=== PATIENT | female | born 1940 | race Caucasian/White ===

== ENCOUNTER 2017-03-01 12:02 | Inpatient (IN) | payer MEDICARE ==
[~2017-03-01] VITALS: Ht 131.9 cm; Wt 59.4 kg
[~2017-03-01 12:02] MED LIST: BAYER CHEWABLE81 MG PO; CALCITRIOL0.25 MCG; CALCITRIOL0.25 MCG PO; CALCIUM 600 +1 EAC1 PO; CEFUROXIME250 MG PO; CENTRUM GARLIC300 MG; CITRACAL-VIT D1 EACH; ESTER-C 1,0001 EACH; ESTER-C 500 MG1 EACH PO; EYEBRIGHT PO; GLUCOSAMINE CH1 EAC7; HUMALOG100 UNIT/1 IMPLANT; HYZAAR 50-12.51 EACH PO; LASIX 20 MG TAB20 MG; LIPITOR10 MG PO; LISINOPRIL40 MG PO; NEPHRO-VITE TA0.8 MG PO; NITROGLYCERIN0.4 MG PO; OXYCODONE HCL 55 MG PO; OXYCONTIN10 M1 PO; PLAVIX 75 MG TA75 M1 PO; RENAL CAPS SOFTG1 MG PO; SERTRALINE20 MG/1 ML; SIMVASTATIN20 MG; TOPROL XL25 MG PO; ZOLOFT 50 MG TA50 MG PO; ZOLOFT50 MG PO; [UNRECOGNIZED DRUG - OTHER]
[2017-03-01 12:18] VITALS: BP 184/65
[2017-03-01] MEDS ORDERED: ZYKADIA150 MG PO (12:22)
[2017-03-01 12:39] LABS: BE 0 mmol/L (-2 to +3); HCO3 26.1 mmol/L (22.0-26.0); PCO2 48.9 mmHg (35.0-45.0); PO2 84.2 mmHg (75.0-100.0); pH 7.346 (7.340-7.450)
[2017-03-01 12:56] LABS: ABSOLUTE BASOPHILS 0.1 thou/uL (0.0-0.2); ABSOLUTE EOSINOPHILS 0.1 thou/uL (0.0-0.7); ABSOLUTE LYMPHOCYTES 0.7 thou/uL (0.8-5.3); ABSOLUTE MONOCYTES 0.7 thou/uL (0.0-1.2); BASOPHILS 1.2 %; EOSINOPHILS 1.4 %; HEMATOCRIT 35.3 % (37.0-47.0); HEMOGLOBIN 11.1 gm/dL (12.0-15.0); MCH 28.3 pg (26.0-34.0); MCHC 31.3 g/dL (28.0-37.0); MCV 90.3 fL (80.0-100.0); MONOCYTES 16.2 %; MPV 8.5 fl. (7.2-11.1); NUCLEATED RBCS 0 /100WBC; PLATELET COUNT* 193 thou/uL (150-400); POLYS 66.2 %; RBC 3.91 mil/uL (4.20-5.00); RDW-CV 18.2 % (10.5-14.5); WBC 4.6 thou/uL (4.0-11.0)
[2017-03-01 13:01] LABS: CALCIUM 8.7 mg/dL (8.5-10.1); CREATININE 6.2 mg/dL (0.6-1.3); POTASSIUM 5.1 mmol/L (3.5-5.1)
[2017-03-01 13:06] LABS: ALBUMIN 3.2 g/dL (3.4-5.0); TOTAL BILIRUBIN 0.3 mg/dL (<0.1-1.0); TOTAL PROTEIN 7.3 g/dL (6.4-8.2)
--- NOTE | 2017-03-01 15:29 | EKG ---
[place] [address] ELECTROCARDIOGRAM REPORT Name: SARA BRANDT Room: [facility]#: [id number] Admission: 03/01/17 Attend Phys: Discharge: Date of : 44 Report #: [id number] THIS REPORT FOR: //name// [facility] ED Test Date: 2017-03-01 Test Time: 12:21:32 Pat Name: SARA BRANDT Department: Room: Gender: F Yard Jacker: : 1940 Requested By: Deisi Sotomayor Order Number: [id number] Reading MD: Sam Chadwick Measurements Intervals [place] Rate: 75 P: 46 HI: 154 QRS: -29 QRSD: 91 T: 53 QT: 391 QTc: 437 Interpretive Statements Sinus rhythm LVH by voltage Compared to ECG 11/11/2013 10:39:08 Left ventricular hypertrophy now present Atrial premature complex(es) no longer present Electronically Signed On 03-01-2017 15:29:23 MEAT DEPARTMENT MANAGER by Sam Chadwick [email or web address] <ELECTRONICALLY SIGNED> By: Sam Chadwick MD, [facility] 03/01/17 1529 1221 1221 Sam Chadwick MD, [facility] /EPI
[2017-03-01 18:16] VITALS: BP 160/69
[2017-03-01 18:35] VITALS: BP 167/71
--- NOTE | 2017-03-01 18:47 | NUR ---
ER ADMIT TO ROOM 201. ADMISSION HX OBTAINED. 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 DENIES PAIN AT THIS TIME. 02 ON 3L PER NC, STATES HAS HOME 02 WHICH SHE IS ON 3L PER NC. AT BEDSIDE. ORIENTED TO ROOM/CALL LIGHT AND REVIEWED PLAN OF CARE. NOTIFIED BY CHARGE NURSE PATIENT TO TRANSFER TO MED/TELE FLOOR. WILL PASS ON REPORT TO ONCOMING SHIFT FOR CONTINUATION OF ADMISSION AND CARE.
--- NOTE | 2017-03-01 19:15 | NUR ---
REPORT CALLED TO GIVEN TO YOLIS MARTINEZ ON ORTHO/MED FLOOR. PATIENT EDUCATED ON TRANSFER, AT BEDSIDE. PATIENT TO TRANSFER TO ROOM 117.
[2017-03-01] MEDS ORDERED: NOVOLOG100 UNIT/1 SUBQ (20:16)
[2017-03-01] MEDS ORDERED: LANTUS100 UNIT/M SUBQ (20:17)
[2017-03-01] MEDS ORDERED: NORVASC5 M1 PO (20:26)
[2017-03-01 20:41] VITALS: BP 163/69
[2017-03-02 04:16] VITALS: BP 173/77
--- NOTE | 2017-03-02 08:23 | NUR ---
ARRIVED TO UNIT AT APROXIMATELY 1900. ASSESSMENT DONE CHARTED. HAD WRITTEN ORDER FOR TELE. STATUS. NOTIFIED AND WANTED PATIENT LEFT ON MED/SURG. STATUS. CALL LIGHT WITHIN REACH.
--- NOTE | 2017-03-02 08:28 | NUR ---
ALERT AND ORIENTED. UP WITH STAND BY ASSIST. DR PARTIDA CONSULTED. DR PARTIDA AND MEDICAL DR NOTIFIED OF PATIENT'S ABNORMAL LABS, ASSESSMENT, V/S AND SOA. MEDICAL DR MADE AWARE OF PATIENT'S C/O LEFT SHOULDER PAIN THAT DID NOT RADIATE AND HURT A LITTLE MORE WITH MOVEMENTS BUT NO NEW ORDERS NOTED. DR PARTIDA ORDERED BIPAP FOR PATIENT BUT PATIENT WAS UNABLE TO TOLERATE. DR PARTIDA ALSO ORDERED FOR PATIENT TO HAVE DIALYSIS DURING NIGHT. DIALYSIS NURSE HERE AND DIALYSIS COMPLETED THIS AM. NO C/O N/V. PATIENT DID NOT VOID LAST NIGHT. PATIENT ONLY TOOK IN A VERY SMALL AMOUNT OF WATER. DIALYSIS FISTULA HAS AUDIBLE BRUIT AND PALPABLE THRILL. PATIENT STATED SHE FELT MUCH BETTER AFTER DIALYSIS THIS AM. SHE SAID SHE DID NOT FEEL SOA. CALL LIGHT WITHIN REACH.
[2017-03-02 08:40] VITALS: BP 167/61
[2017-03-02 17:00] VITALS: BP 150/63
--- NOTE | 2017-03-02 17:36 | NUR ---
ASSUMED CARE OF PATIENT AFTER REPORT THIS MORNING. PATIENT AWAKE, ALERT, AND ORIENTED APPROPRIATELY. PHYSICAL ASSESSMENT COMPLETED AND CHARTED. NO COMPLAINTS OF PAIN THIS SHIFT. VITAL SIGNS STABLE. OXYGEN SATURATION WITHIN NORMAL LIMITS ON ROOM AIR. PATIENT USES BEDSIDE COMMODE. TRANSFERS AND AMBULATES WITH ASSIST FROM STAFF. DENIES NEEDS AT THIS TIME. CALL LIGHT WITHIN REACH, USES APPROPRIATELY. NURSING WILL CONTINUE TO MONITOR.
[2017-03-02 19:48] VITALS: BP 167/81
[2017-03-03 00:41] VITALS: BP 154/65
[2017-03-03 04:11] LABS: HEMOGLOBIN 10.9 gm/dL (12.0-15.0); MCH 27.9 pg (26.0-34.0); MCHC 31.2 g/dL (28.0-37.0); MCV 89.4 fL (80.0-100.0); MPV 9.2 fl. (7.2-11.1); RBC 3.92 mil/uL (4.20-5.00); RDW-CV 18.7 % (10.5-14.5); WBC 8.4 thou/uL (4.0-11.0)
[2017-03-03 04:19] LABS: ALBUMIN 2.9 g/dL (3.4-5.0); CALCIUM 9.1 mg/dL (8.5-10.1); POTASSIUM 5.2 mmol/L (3.5-5.1); TOTAL BILIRUBIN 0.6 mg/dL (<0.1-1.0)
[2017-03-03 04:22] LABS: CREATININE 5.2 mg/dL (0.6-1.3)
[2017-03-03 04:50] LABS: PHOSPHORUS* 6.4 mg/dL (2.5-4.9); POTASSIUM 5.4 mmol/L (3.5-5.1)
[2017-03-03 04:55] VITALS: BP 168/75
[2017-03-03 05:19] LABS: CREATININE 5.2 mg/dL (0.6-1.3)
--- NOTE | 2017-03-03 05:39 | NUR ---
ALERT AND ORIENTED X4. UP WITH STAND BY ASSIST TO RECLINER. TYLENOL GIVEN FOR LEG PAIN AMD HELPFUL. HAD SOME NAUSEA AND VOMITING BUT REFUSED NAUSEA MEDICATIONS. LUNG SOUNDS CONTINUE TO BE COARSE BUT HAVE IMPROVED SINCE 03/04. PATIENT STATED SHE FEELS A LITTLE BETTER TODAY. DIAYLSIS FISTULA IN LEFT ARM HAS AUDIBLE BRUIT AND PALPABLE THRILL. O2 AT 3;NC TO KEEP O2 SATS IN 90%. CALL LIGHT WITHIN REACH.
[2017-03-03 08:00] VITALS: BP 129/51
[2017-03-03 18:03] VITALS: BP 132/56
--- NOTE | 2017-03-03 20:22 | NUR ---
I ASSUMED CARE OF THE PATIENT AT 0700. SHE IS ALERT AND ORIENTED X4. BED IS IN THE LOW LOCKED POSITION AND ALARM IS ON. PATIENT CAN TRANSFER WITH ASSISTANCE X1. SHE HAS AN ACCESSED PORT ON THE RIGHT. SHE GETS DIALYSIS . BLOOD SUGAR WAS ALL OVER THE PLACE SHE REFUSED A PORTION OF HER SLIDING SCALE THIS MORNING. HOME CHEMO MEDS ARE IN THE PATIENT DRAWER. PATIENT IS PROGRESSING TOWARD GOALS. FAMILY AND HOAHAOISM FRIENDS ARE AT THE BEDSIDE MOST OF THE DAY. HOURLY ROUNDING WAS COMPLETED, PATIENT NEEDS WERE MET AND PAIN WAS DENIED. BREATHING IS LABORED WITH ANY EXERTION OR EATING. WILL CONTINUE TO MONITOR.
[2017-03-03 22:06] VITALS: BP 143/61
[2017-03-04 01:19] VITALS: BP 166/60
--- NOTE | 2017-03-04 05:51 | NUR ---
ALERT AND ORIENTED. UP WITH STAND BY ASSIST IN ROOM BY BED. SLEPT MOST OF NIGHT IN RECLINER. LUNG SOUNDS CONTINUE TO BE COARSE AND WITH CRACKLES IN BASES. VOMITED A COUPLE OF TIMES LAST NIGHT BUT REFUSED NAUSEA MEDICATION. TYLENOL USED FOR LEG PAIN WITH SOME RELIEF. CONTINUES TO RECEIVE IV ANTIBIODICS. REMAINS ON O2 AT 5L/NC TO KEEP O2 SATS IN 90'S. CALL LIGHT WITHIN REACH.
[2017-03-04 08:15] VITALS: BP 153/49
[2017-03-04 13:07] LABS: HEPATITIS B SURFACE AG Negative (Negative)
[2017-03-04 16:00] VITALS: BP 150/48
--- NOTE | 2017-03-04 18:18 | NUR ---
ASSUMED CARE OF PATIENT AFTER MORNING REPORT. ALERT ORIENTED X4. ASSESSMENT COMPLETED AND CHARTED. VSS ON 5 LITERS. PATIENT HAS HAD NO COMPLAINT OF NAUSEA THIS SHIFT. PAIN HAS BEEN MANAGED WITH MEDICATION. PATIENT HAS BEEN WAITING TO GO UP FOR DIALYSIS FOR SEVERAL HOURS AND IS STILL WAITING. ZOSYN WAS SCHEDULED AT 1400 BUT NOT GIVEN PATIENT IS AWAITING DYALISIS. WILL NEED TO BE GIVEN WHEN SHE COMES BACK DOWN. HOURLY ROUNDS HAVE BEEN MAINTAINED. CALL LIGHT IS WITHIN REACH. NURSING WILL CONTINUE TO MONITOR.
[2017-03-04 19:28] LABS: CALCIUM 8.8 mg/dL (8.5-10.1); POTASSIUM 5.4 mmol/L (3.5-5.1)
[2017-03-04 19:29] LABS: CREATININE 7.4 mg/dL (0.6-1.3)
[2017-03-04 23:20] VITALS: BP 172/79
[2017-03-05 03:56] VITALS: BP 160/68
--- NOTE | 2017-03-05 06:46 | NUR ---
PATIENT HAS BEEN RESTLESS THROUGHOUT THE NIGHT AND IS SITTING UP IN SEMI-FOWLERS TO HELP WITH EASE OF BREATHING. PATIENT HAS HAS LOOSE STOOLS X 2 DURING THE NIGHT. VSS ON 5L 02 VIA NASAL CANNULA. DIALYSIS FISTULA TO LEFT ARM-GOOD BRUIT AND THRILL NOTED. RIGHT CHEST PORT-SL. IV ABT GIVEN WITHOUT ANY ADVERSE SIDE EFFECTS NOTED. LUNGS DIMINISHED. PATIENT INSTRUCTED TO USE CALL LIGHT WHEN NEEDING ASSISTANCE. HOURLY ROUNDS MADE. WILL CONTINUE WITH PLAN OF CARE AND NURSING TO MONITOR.
[2017-03-05 07:56] VITALS: BP 168/75
--- NOTE | 2017-03-05 10:14 | CON ---
[address] [address] CONSULTATION Name: SARA BRANDT Room: [address] IN .R.#: [id number] Admission: 03/01/17 Attend Phys: Jolie Kang Discharge: Date of : 44 Report #: [id number] THIS REPORT FOR: //name// CC: Shilpa Stacy DATE OF SERVICE: 03/02/2017 HISTORY OF PRESENT ILLNESS: The patient is a 76-year-old dialysis patient, who presented acutely short of breath and diagnosed with pneumonia yesterday. He ECG demonstrated sinus rhythm. Her prominent lab abnormalities included a BNP level of greater than 10,000 and evidence of cardiomegaly on chest x-ray, but not classical findings for heart failure on imaging otherwise. There was no evidence of pulmonary embolus. She denies chest pain or pressure or shortness of breath. Symptoms began over the last 7-10 days. They were not improved with her usual hemodialysis runs. There is positive orthopnea and PND. She denies chest pain or pressure. She does carry a coronary artery disease history, which is somewhat vague. PAST MEDICAL HISTORY: She was diagnosed with coronary artery disease initially as workup for kidney transplant workup. She underwent a PCI at [facility]; her family thinks in 2003 or 2004 and then had seen a junior project manager last year at [employer]. She cannot recall the last time any testing was performed, records have been requested. She has end-stage renal disease, on hemodialysis; history of diabetic ketoacidosis. SHE HAS SEVERE HEPARIN ALLERGY. She has irritable bowel syndrome. MEDICATIONS: Include the following: Levofloxacin, IV insulin, Zosyn, Plavix 75 mg daily, atorvastatin 40 mg daily, metoprolol XL 25 mg daily, lisinopril 40 mg daily, baby aspirin. SOCIAL HISTORY: She is a nonsmoker, . REVIEW OF SYSTEMS: GASTROINTESTINAL: No nausea or vomiting. GENITOURINARY: No dysuria or hematuria. PULMONARY: Positive shortness of breath, positive cough. No orthopnea, no PND. CARDIOVASCULAR: Positive dyspnea. No chest pain, no palpitations. NEUROLOGIC: No syncope or seizures. No history of stroke or TIAs. HEMATOLOGIC: No anemia or bleeding disorders. RENAL: Positive kidney failure. ENDOCRINE: Positive diabetes mellitus. PHYSICAL EXAMINATION: [place] [id number] CONSULTATION Name: SARA BRANDT Room: [address]#: [id number] Admission: 03/01/17 Attend Phys: Jolie Kang Discharge: Date of : 44 Report #: [id number] VITAL SIGNS: Blood pressure is 167/61, heart rate 72, in sinus rhythm, and O2 sats 5 liters nasal cannula. GENERAL: This is a pleasant elderly female, she is sitting up in bed, respiring comfortably. CARDIOVASCULAR: Regular. I could hear a diastolic murmur, which is 3/6. LUNGS: Diminished breath sounds bilaterally. ABDOMEN: Soft, nontender. EXTREMITIES: No peripheral edema. SKIN: Warm and dry. Electrocardiogram demonstrates a sinus rhythm with LVH. Her BNP is greater than 10,000. Her troponin was normal. IMPRESSION AND PLAN: 1. Pneumonia. She is on IV antibiotics. 2. Congestive heart failure, presumably diastolic etiology. She also does have valvular heart disease based on physical exam finding. I am trying to obtain her record from [facility] from previous testing. I will order another echocardiogram. 3. Coronary artery disease. She is ruled out for an acute myocardial infarction. She would benefit from stress testing if not done recently, we will obtain records. 4. Hypertension, malignant. She has ECG findings for hypertensive heart disease. Would continue with present medical therapy. 5. End-stage renal disease. <ELECTRONICALLY SIGNED> By: Sam Chadwick MD, FACC 03/05/17 1014 1419 [id number] Chadwick MD, FACC /nt
--- NOTE | 2017-03-05 11:08 | NUR ---
CM SPOKE TO THE PATIENT AND TO DISCUSS HOME SITUAION, DISCHARGE PLANNING, AND TO INFORM OF THE ROLE OF CM. PATIENT RESTING WITH EYES CLOSED AND PATIENTS ANSWERING QUESTIONS. PATIENT RESIDES AT HOME WITH AND HE ASSIST THE PATIENT NEEDED AND DRIVES THE PATIENT TO DIALAYSIS. PATIENT RECIEVES DIALAYSIS AT [facility]. PATIENT OWNS A WALKER AND CANE. PATIENT HAS NO HX OF OR SNF. PATIENT PLANS TO RETURN HOME AT D/C. CM WILL REMAIN AVAILABLE TO ASSIST AND FOLLOW NEEDED.
--- NOTE | 2017-03-05 13:21 | 2DMMODE ---
[place] [address] 2 D/M-MODE ECHOCARDIOGRAM Name: SARA BRANDT Room: [address] IN [facility]#: [id number] Admission: 03/01/17 Attend Phys: Osmin Stacy Discharge: Date of : 44 Date of Service: 03/04/17 1455 Report #: [id number] THIS REPORT FOR: //name// APPROVED REPORT Study performed: 03/04/2017 10:43:35 EXAM: Comprehensive 2D, Doppler, and color-flow Echocardiogram Patient Location: In-Patient Room #: [facility] Status: routine BSA: 1.62 HR: 83 bpm BP: 166/60 mmHg Other Information Study Quality: Good Indications Dyspnea 2D Dimensions LVEF(%): 78.61 (>50%) IVSd: 10.23 (7-11mm) LVOT Diam: 19.60 (18-24mm) LVDd: 45.40 mm PWd: 9.71 (7-11mm) Ascending Ao: 29.12 (22-36mm) LVDs: 24.02 (25-40mm) Aortic Root: 26.42 mm Perea's LVEF: 78.61 % Volumes Left Atrial Volume (Systole) LA ESV Index: 31.60 mL/m2 Aortic Valve AoV Peak Mark.: 1.88 m/s AO Peak Gr.: 14.17 mmHg LVOT Max P.01 mmHg AO Mean Gr.: 7.74 mmHg LVOT Mean P.53 mmHg LVOT Max V: 1.58 m/s AO V2 VTI: 38.51 cm LVOT Mean V: 1.09 m/s SANJIV (VTI): 2.82 cm2 LVOT V1 VTI: 35.94 cm Mitral Valve MV Peak Gr.: 14.29 mmHg MV Mean Gr.: 7.82 mmHg E/A Ratio: 1.04 [place] [address] 2 D/M-MODE ECHOCARDIOGRAM Name: SARA BRANDT Room: [address] IN .R.#: [id number] Admission: 03/01/17 Attend Phys: Osmin Stacy Discharge: Date of : 44 Date of Service: 03/04/17 1455 Report #: [id number] MV Decel. Time: 232.06 ms MV E Max Mark.: 1.77 m/s MV PHT: 67.30 ms MVA (PHT): 3.27 cm2 TDI E/Lateral E': 22.13 E/Medial E': 25.29 Medial E' Mark.: 0.07 m/s Lateral E' Mark.: 0.08 m/s Pulmonary Valve PV Peak Mark.: 1.50 m/s PV Peak Gr.: 8.99 mmHg Tricuspid Valve TR Peak Gr.: 46.40 mmHg RVSP: 51.40 mmHg Left Ventricle The left ventricle is normal size. There is normal LV segmental wall motion. There is normal left ventricular wall thickness. Left ventricular systolic function is normal. The left ventricular ejection fraction is within the normal range. LVEF is >70%. The left ventricular diastolic function is normal. Right Ventricle The right ventricle is normal size. The right ventricular systolic function is normal. Atria Left atrium is mildly dilated. The right atrium size is normal. Aortic Valve The aortic valve is normal in structure. No aortic regurgitation is present. There is no aortic valvular stenosis. Mitral Valve There is mitral annular calcification. Mild mitral regurgitation. Mild mitral stenosis. Tricuspid Valve The tricuspid valve is normal in structure. Moderate tricuspid regurgitation. The RVSP is __51.4 mmHg. Pulmonic Valve The pulmonary valve is normal in structure. Trace [place] [address] 2 D/M-MODE ECHOCARDIOGRAM Name: SARA BRANDT Room: [address] IN M.R.#: [id number] Admission: 03/01/17 Attend Phys: Osmin Stacy Discharge: Date of : 44 Date of Service: 03/04/17 1455 Report #: [id number] Great Vessels The aortic root is normal in size. IVC is normal in size and collapses with >50% inspiration Pericardium There is no pericardial effusion. <Conclusion> LVEF is >70%. Left atrium is mildly dilated. Mild mitral regurgitation. Mild mitral stenosis. Moderate tricuspid regurgitation. The RVSP is __51.4 mmHg. <ELECTRONICALLY SIGNED> By: Kale Dyson MD, [facility] 03/04/17 1455 1455 1455 Kale Dyson MD, FAC /INF
--- NOTE | 2017-03-05 14:45 | NUR ---
CM SPOKE TO THE PATIENT TO DISCUSS DISCHARGE PLANNING AND ANY QUESTIONS OR CONCERNS THAT SHE MAY HAVE. PATIENT HAS NO QUESTIONS OR CONCERNS AT THIS TIME. PATIENT TO DISCHARGE HOME TODAY AMD WILL RETURN TO [facility] TOMORROW. CM CONTACTED [facility] AND SPOKE TO PRINCESS TO INFORM THAT THE PATIENT WOULD D/C TODAY AND FAXED THE PATIENTS FLOW SHEETS. CM WILL REMAIN AVAILABLE TO ASSIST AND FOLLOW NEEDED
[2017-03-05] MEDS ORDERED: LEVAQUIN 500 M500 M1 PO (14:51)
[2017-03-05] MEDS ORDERED: ATORVASTATIN CA40 MG PO (14:52)
[2017-03-05 16:00] VITALS: BP 165/74
--- NOTE | 2017-03-05 17:07 | NUR ---
ASSUMED CARE OF PATIENT AFTER REPORT THIS MORNING. PATIENT AWAKE, ALERT, AND ORIENTED APPROPRIATELY. PHYSICAL ASSESSMENT COMPLETED AND CHARTED. NO COMPLAINTS OF PAIN. GIVEN SCHEDULED MEDICATIONS, SEE EMAR FOR DOCUMENTATION. VITAL SIGNS STABLE. OXYGEN SATURATION WITHIN NORMAL LIMITS ON 4 LPM PER NASAL CANULA. PATIENT IS TO TRANSFER WITH ASSISTANCE FROM STAFF. OK FOR TO HELP PATIENT WHILE PRESENT. PATIENT AND EDUCATED TO LET STAFF KNOW WHEN LEAVES. RECEIVED DISCHARGE ORDERS FROM PHYSICIAN. PATIENT MADE AWARE. SHORTLY AFTER PHYSICIAN LEFT PATIENT COMPLAINED OF BODY ACHES, DIARRHEA, AND DRY HEAVING. PATIENT STATED SHE DIDN'T FEEL THIS WAY WHILE THE PHYSICIAN WAS IN THE ROOM, THAT IT CAME ON QUICKLY. PHYSICIAN MADE AWARE. ORDER TO DISCHARGE CANCELLED. NEW ORDERS RECEIVED. PATIENT DENIES NEEDS AT THIS TIME. CALL LIGHT WITHIN REACH. NURSING WILL CONTINUE TO MONITOR.
[2017-03-05 17:10] LABS: INFLUENZA A ANTIGEN None Detected (None Detect); INFLUENZA B ANTIGEN None Detected (None Detect)
[2017-03-05 20:40] VITALS: BP 176/79
[2017-03-06] VITALS (13 sets, daily range): BP systolic 122–188; BP diastolic 7–93
--- NOTE | 2017-03-06 04:10 | NUR ---
PATIENT HAS BEEN RESTLESS THROUGHOUT THE NIGHT AND STATES THAT SHE IS VERY TIRED BUT CAN'T SLEEP. PATIENT IS ANXIOUS. BENADRYL GIVEN TO HELP WITH ANXIETY AND TO HELP WITH SLEEP ORDERED. VSS ON 4L 02 VIA NASAL CANNULA, ALTHOUGH BP IS ELEVATED. LUNG SOUNDS DIM AND ASSESSMENT CHARTED. PATIENT IS UP WITH SBA TO THE [facility] AND HAS HAD MULTIPLE EPISODES OF LIQUID STOOL THROUGHOUT THE SHIFT. PATIENT REMAINS ON SPECIAL CONTACT ISOLATION D/T POSSIBLE C-DIFF. STOOL CULTURE IS PENDING. RIGHT CHEST PORT FLUSHED AND SL. FISTULA TO LEFT ARM- GOOD BRUIT AND THRILL NOTED. PATIENT HAS HAD C/O NAUSEA BUT NO EMESIS NOTED. NAUSEA MEDICATION GIVEN. PATIENT INSTRUCTED TO USE CALL LIGHT WHEN NEEDING ASSISTANCE. HOURLY ROUNDS MADE. WILL CONTINUE WITH PLAN OF CARE AND NURSING TO MONITOR.
[2017-03-06 05:36] LABS: HEMATOCRIT 35.6 % (37.0-47.0); MCHC 30.8 g/dL (28.0-37.0); MCV 90.9 fL (80.0-100.0); MPV 9.6 fl. (7.2-11.1); RBC 3.92 mil/uL (4.20-5.00); RDW-CV 18.6 % (10.5-14.5); WBC 7.5 thou/uL (4.0-11.0)
[2017-03-06 05:40] LABS: CALCIUM 9.3 mg/dL (8.5-10.1); POTASSIUM 5.3 mmol/L (3.5-5.1)
[2017-03-06 05:41] LABS: CREATININE 4.9 mg/dL (0.6-1.3)
--- NOTE | 2017-03-06 15:57 | NUR ---
PT.WENT IN TO AFIB WITH RVR THIS AFTERNOON. ON CARDIZEM GTT AND WILL TRANSFER TO TELEMETRY.
--- NOTE | 2017-03-06 16:09 | NUR ---
ASSUMED CARE OF PATIENT AFTER REPORT THIS MORNING. PATIENT AWAKE, ALERT, AN DORIENTED APPROPRIATELY. PHYSICAL ASSESSMENT COMPLETED AND CHARTED. VITAL SIGNS STABLE PRIOR TO DIALYSIS. PATIENT WENT TO DIALYSIS. WHEN PATIENT RETURNED FROM DIALYSIS VITAL SIGNS CHECKED AND HEART RATE WAS 142 WITH STABLE BLOOD PRESSURE. SCHEDULED MEDICATIONS GIVEN, SEE EMAR FOR DOCUMENTATION. OBTAINED EKG WITH RESULTS BEING AFIB. PHYSICIAN PAGED AND NEW ORDERS RECEIVED TO TRANSFER PATIENT TO TELEMETRY UNIT AND START ON CARDIZEM DRIP. NO TELEMETRY BED AVAILABLE AT TIME OF ORDER. TELEMETRY NURSE IN ROOM WITH CARDIZEM GTT RUNNING AT THIS TIME. PATIENT'S HEART RATE REMAINS 120S-130S. REPORT CALLED AND GIVEN TO RAMIRO ON TELEMETRY UNIT. PATIENT READY TO TRANSFER AT THIS TIME.
--- NOTE | 2017-03-06 16:28 | EKG ---
[place] [address] ELECTROCARDIOGRAM REPORT Name: SARA BRANDT Room: [address] ADM IN .R.#: [id number] Admission: 03/01/17 Attend Phys: Jolie Kang Discharge: Date of : 44 Report #: [id number] THIS REPORT FOR: //name// [facility] Test Date: 2017-03-06 Test Time: 13:42:34 Pat Name: SARA BRANDT Department: Room: [address] Gender: F Animal Control Supervisor: 27 : 1940 Requested By: Kale Dyson Order Number: [id number] Alejandra MD: Kale Dyson Measurements Intervals [place] Rate: 138 P: RI: QRS: -14 QRSD: 82 T: 177 QT: 268 QTc: 406 Interpretive Statements Atrial fibrillation LVH with secondary repolarization abnormality Baseline wander in lead(s) V2 Compared to ECG 03/01/2017 12:21:32 Sinus rhythm no longer present Electronically Signed On 03-06-2017 16:28:01 CENTRIFUGAL CASTING MACHINE OPERATOR by Kale Dyson [email or web address] <ELECTRONICALLY SIGNED> By: Kale Dyson MD, [facility] 03/06/17 1628 1342 1342 Kale Dyson MD, [facility] /EPI
--- NOTE | 2017-03-06 16:53 | NUR ---
ASSUMED PT CARE AROUND 1644 PT IS ALERT AND ORIENTED X 4 PT STATES LEGS ARE ACHY PT WAS GIVEN TYLENOL BY PREVIOUS NURSE PT STATES TYLENOL HELPS, PT IS ON 3L/NC HAS EPISODES WITH SOA, PT IS NOT A FALL RISK [T HAS BEEN EDUCATED TO REFRAIN FROM MOVING AROUND FREQUENTLY SINCE PT HEART RATE IS ELEVATED PT IS ON CARDIZEM DRIP PT HAS NEW ONSET AFIB, PT BLOOD PRESSURE ARE STABLE, PT IS ANXIOUS, PT IS UP TO BEDSIDE COMMODE, WILL CONTINUE TO MONITOR
[2017-03-07] VITALS: BP 146/49
--- NOTE | 2017-03-07 02:19 | NUR ---
PATIENT IS SLEEPING ON AND OFF THROUGHOUT NIGHT. EPISODE OF EMESIS DUE TO PO CHEMO THAT PATIENT TAKES AT HOME WELL. OFFERED ZOFRAN BUT REFUSED. LS DIM. CONT. SR ON MONITOR. NO SIGNS OF DISTRESS. DENIES PAIN OR DISCOMFORT. CONT. WITH PLAN OF CARE AT THIS TIME.
[2017-03-07 08:00] VITALS: BP 162/53
--- NOTE | 2017-03-07 11:18 | NUR ---
ASSUMED CARE OF PT AT 0730. PT RESTING AT EDGE OF BED COMPLAINING OF GENERALIZED PAIN. TREATED WITH PRN TYLENOL WITH PARTIAL RELIEF. PT VOMITED EARLY THIS AM PRIOR TO DAYSHIFT AFTER RECEIVING CHEMO MEDICATIONS. REFUSED ANTI NAUSEA MEDICATIONS. PT UP TO CHAIR FOR BREAKFAST. PT A&0X4. TRACING SR ON THE PRESS PULLER. ON 3L NC SAT 99%. DENIES ANY SHORTNESS OF BREATH. PT UP SBA TO BATHROOM. PT BLOOD GLUCOSE 466 THIS AM. GOAL IS TO MANAGE PAIN, NAUSEA AND BLOOD GLUCOSE LEVELS AND UP TO CHAIR FOR MEALS TO INCREASE ACTIVITY. AM ASSESSMENT CHARTED. MEDICATIONS PER APR. PT REPOSITIONS SELF IN BED WITH REMINDERS. HOURLY ROUNDING OBSERVED. BED IN LOW POSITION. CALL LIGHT WITHIN REACH. WILL CONTINUE PLAN OF CARE.
[2017-03-07 11:58] VITALS: BP 147/50
[2017-03-07 15:44] LABS: CALCIUM 8.9 mg/dL (8.5-10.1); CREATININE 4.6 mg/dL (0.6-1.3); POTASSIUM 3.5 mmol/L (3.5-5.1)
[2017-03-07 16:10] VITALS: BP 122/45
--- NOTE | 2017-03-07 17:31 | EKG ---
[place] [address] ELECTROCARDIOGRAM REPORT Name: SARA BRANDT Room: [address] ADM IN .R.#: [id number] Admission: 03/01/17 Attend Phys: Jolie Kang Discharge: Date of : 44 Report #: [id number] THIS REPORT FOR: //name// [facility] Test Date: 2017-03-07 Test Time: 09:16:07 Pat Name: SARA BRANDT Department: Room: [address] Gender: F Peoplesoft Crm Developer: 27 : 1940 Requested By: Melanie Case Order Number: [id number] Reading MD: Jose C Cardoza Measurements Intervals [place] Rate: 73 P: 59 CT: 136 QRS: -25 QRSD: 86 T: 68 QT: 417 QTc: 460 Interpretive Statements Sinus rhythm Borderline left axis deviation Early transition Compared to ECG 03/06/2017 13:42:34 ST (T wave) deviation now present Myocardial infarct finding now present Atrial fibrillation no longer present Left ventricular hypertrophy no longer present Early repolarization no longer present Electronically Signed On 03-07-2017 17:31:25 STRATEGIC SOLUTIONS CONSULTANT by Jose C Cardoza [email or web address] <ELECTRONICALLY SIGNED> By: Jose C Cardoza MD, FACC 03/07/17 1731 5 5 Jose C Cardoza MD, FACC /EPI
--- NOTE | 2017-03-07 17:38 | NUR ---
NO ACUTE CHANGES THROUGHOUT SHIFT. REFER TO CHARTING. PT COMPLAINED OF NAUSEA-TREATED WITH IV ZOFRAN WITH RELIEF. PT COMPLAINED OF PAIN TO BILATERAL LE'S. SCHEDULED HOME OXYCODONE 10MG PO BID RESTARTED TO PT APR AND GIVEN WITH PAIN RELIEF. INSULIN CHANGED TO MODERATE DOSE SLIDING SCALE PER PROTOCOL. REFER TO EMAR. PT AT BEDSIDE THROUGHOUT SHIFT. PT CONTINUES TO TRACE SR ON THE TAXICAB DRIVER. ON 3L NC SAT UPPER 90'S. DENIES ANY SHORTNESS OF BREATH. PT UP WITH [facility] [place] [facility] HAD A BOWEL MOVEMENT TODAY. MEDICATIONS PER APR. PT REPOSITIONS SELF IN BED WITH REMINDERS. HOURLY ROUNDING OBSERVED. BED IN LOW POSITION. BED ALARM IN PLACE. FALL PRECAUTIONS IN PLACE. CALL LIGHT WITHIN REACH. WILL CONTINUE PLAN OF CARE.
[2017-03-08] VITALS (7 sets, daily range): BP systolic 110–146; BP diastolic 35–48
--- NOTE | 2017-03-08 03:20 | NUR ---
ASSUMED CARE OF PT AT 1900. PT IS ALERT AND ORIENTED. VSS. PERRLA. NO COMPLAINTS OF PAIN. PT TO START DIALYSIS IN THE AM AT 0730. PT IS IN SINUS RYTHM ON THE TELEMETRY. PT IS RESTING COMFORTABLY IN BED. RESPIRATIONS ARE EVEN AND NONLABORED. WILL CONTINUE TO MONITOR PT.
--- NOTE | 2017-03-08 11:05 | NUR ---
ASSUMED CARE OF PT AT 0730. PT RESTING IN BED WAITING FOR DIALYSIS. PT A&0X4, DENIES ANY PAIN OR SHORTNESS OF BREATH AT THIS TIME. PT TRACING SR ON THE AUTOMOTIVE PARTS INTERPRETER. ON 3L NC SAT UPPER 90'S. PT UP SBA TO BATHROOM. PT GOAL FOR TODAY IS TO WORK WITH PT AND OT, INCREASE STRENGTH AND ENDURANCE AND POSSIBLE DISCHARGE HOME AFTER DIALYSIS. AM ASSESSMENT CHARTED. MEDICATIONS PER APR. PT REPOSITIONS SELF IN BED WITH REMINDERS. HOURLY ROUNDING OBSERVED. BED IN LOW POSITION. CALL LIGHT WITHIN REACH. WILL CONTINUE PLAN OF CARE. PT UP TO DIALYSIS AT APPROXIMATELY 0745.
--- NOTE | 2017-03-08 12:39 | EKG ---
[place] [address] ELECTROCARDIOGRAM REPORT Name: SARA BRANDT Room: [address] ADM IN .R.#: [id number] Admission: 03/01/17 Attend Phys: Jolie Kang Discharge: Date of : 44 Report #: [id number] THIS REPORT FOR: //name// [facility] Test Date: 2017-03-08 Test Time: 09:31:22 Pat Name: SARA BRANDT Department: Room: [address] Gender: F Gearman: 27 : 1940 Requested By: Melanie Case Order Number: [id number] Alejandra MD: Kale Dyson Measurements Intervals [place] Rate: 59 P: 33 NV: 141 QRS: -27 QRSD: 86 T: 126 QT: 442 QTc: 438 Interpretive Statements Sinus rhythm left axis Probable left atrial enlargement LVH with secondary repolarization abnormality Compared to ECG 03/07/2017 09:16:07 no change Electronically Signed On 03-08-2017 12:39:16 DRYING EQUIPMENT OPERATOR by Kale Dyson [email or web address] <ELECTRONICALLY SIGNED> By: Kale Dyson MD, [facility]ACCrys 03/08/17 1239 0931 Kale Dyson MD, [facility] /EPI
--- NOTE | 2017-03-08 13:29 | NUR ---
Nutrition: Pt assessed for LOS. Pt not in room at time of attempted visit, 12:15. Pt will likely discharge home today after HD. Wt: 130#. Labs, RX, hx noted. Low risk.
--- NOTE | 2017-03-08 14:43 | NUR ---
Pt in agreement with going to skilled, faxed referral to [place] per Pt's request. Pt's sister works there. DC orders written, awaiting decision to accept. Pt's can transport.
[2017-03-08] MEDS ORDERED: PACERONE 200 M200 M1 PO (15:35)
[2017-03-08] MEDS ORDERED: ELIQUIS2.5 MG PO (15:37)
[2017-03-08] MEDS ORDERED: ZYKADIA150 MG PO (15:41)
[2017-03-08] MEDS ORDERED: CARDIZEM CD120 MG PO (15:42)
--- NOTE | 2017-03-08 15:44 | NUR ---
Pt discharging to [facility] today. Faxed dc orders. Chart copied. Nurse report number provided, . in room and aware of disposition. will transport. Updated May[facility] at [facility], faxed flowsheets.
[2017-03-08] MEDS ORDERED: FLORANEX TABLE1 EACH PO (15:48)
[2017-03-08] MEDS ORDERED: CALCIUM 600 +1 EAC1 PO (15:59)
[2017-03-08] MEDS ORDERED: DUONEB 2.5-0.5 M3 ML INH (16:00)
[2017-03-08] MEDS ORDERED: FLORASTOR250 MG PO (16:02)
--- NOTE | 2017-03-08 16:22 | CON ---
[address] [place] [address] CONSULTATION Name: SARA BRANDT Room: [address] IN .R.#: [id number] Admission: 03/01/17 Attend Phys: Jolie Kang Discharge: Date of : 44 Report #: [id number] THIS REPORT FOR: //name// CC: Shilpa Stacy CONSULTING PHYSICIAN: Osmin Stacy DO REASON FOR CONSULTATION: End-stage kidney disease. HISTORY OF PRESENT ILLNESS: A 76-year-old female with a history of end-stage kidney disease, on hemodialysis Saturday, Saturday and Saturday, admitted with shortness of breath, diagnosed with pneumonia, has been started on treatment for that, was still having some shortness of breath, was dialyzed recently this morning, had about 2.5 kilos of fluid taken off. She is still having some shortness of breath and has breathing treatments ordered. She otherwise has no complaints. REVIEW OF SYSTEMS: Constitutional, psych, heme, eyes, ENT, respiratory, cardiac, GI, , endocrine, all negative except as documented above. PAST MEDICAL HISTORY: 1. End-stage kidney disease, on hemodialysis at the [facility], Saturday, Saturday and Saturday, on dialysis since 2012. 2. Diabetes. 3. Hypertension. 4. History of irritable bowel syndrome. 5. History of lung cancer. 6. Dyslipidemia. 7. Coronary artery disease. MEDICATIONS: Reviewed. FAMILY HISTORY: Mother had kidney disease, dialysis. SOCIAL HISTORY: No tobacco. PHYSICAL EXAMINATION: VITAL SIGNS: Blood pressure 167/61, pulse 92, temperature 36.9. GENERAL: No acute distress. EYES: Extraocular movements intact. EARS: Externally normal. CARDIOVASCULAR: Regular rate. LUNGS: No crackles. ABDOMEN: Soft. MUSCULOSKELETAL: Nontender. PSYCHIATRIC: Awake, [place] [address] CONSULTATION Name: SARA BRANDT Room: [address]#: [id number] Admission: 03/01/17 Attend Phys: Jolie Kang Discharge: Date of : 42 Report #: [id number] LABORATORY DATA: White cell count 4.6, hemoglobin 11.1, platelets 193. Sodium 131, potassium 5.1, chloride 98, bicarbonate 27, BUN 74, creatinine 6.2, glucose 473, calcium 8.7, albumin 3.2. ASSESSMENT AND PLAN: 1. End-stage kidney disease, hemodialysis Saturday, Saturday and Saturday. 2. Hyponatremia. 3. Pneumonia. PLAN: The patient was dialyzed early this morning, 2.6 kilos of fluid were removed. She is currently being treated for pneumonia. Her sodium was little low, fluid was removed and this is also in the setting of hyperglycemia. We will follow her maintenance dialysis needs. Thank you for requesting my opinion in the care and management of this patient. <ELECTRONICALLY SIGNED> By: Leonor Devries MD 03/08/17 1622 1009 [id number] Devries MD /nt
[2017-03-08] MEDS ORDERED: LIPITOR40 MG PO (16:40)
--- NOTE | 2017-03-08 17:40 | NUR ---
PT HAD DIALYSIS TODAY-3L TAKEN OFF. PT WEAK FOLLOWING DIALYSIS. PT AGRREABLE TO GO TO SNF FOR REHAB. DISCHARGE ORDERS TO [facility] RECEIVED. DISCHARGE INSTRUCTIONS, CARE NOTES, SCRIPTS AND FOLLOW UP APPTS COPIED AND PLACED IN FOLDER FOR FACILITY. CARDIOLOGY HERE TO SEE PT AND ADJUSTED HEART MEDS. RIGHT CHEST MELLY CATH DEACCESSED USING 10ML SALINE ONLY PER PT REQUEST. PT ALLERGIC TO HEPARIN AND STATES SHE ONLY USES SALINE TO DEACCESS PORT. LEFT ARM FISTULA IN PLACE WITH BANDAGES FROM DIALYSIS TODAY. BUCKLE AND BUTTON MAKER REMOVED. PT DISCHARGED WITH ALL BELONGINGS AND PAPERWORK VIA WHEELCHAIR WITH NURSING STAFF TO SPOUSE OWN PERSONAL VEHICLE. SPOUSE TO TRANSPORT PT TO [facility] IN [facility]. REPORT CALLED TO LUCIL[facility] AT [facility].
== END 2017-03-08 17:50 | DRG 177 ==
LOC: M.ERS 12:02 → M.ORTHSURG 16:01 → M.TBA-ER 16:01 → M.2W 18:32 → M.ORTHSURG 19:28 → M.2W 03-06 16:20
PROVIDERS: Internal Medicine; Internal Medicine Nephrology; Personal Emergency Response Attendant; ADMIT Internal Medicine
PROC: 5A1D70Z Performance of Urinary Filtration, Intermittent, Less than 6 Hours Per Day (ICD-10-PCS; principal; 2017-03-02)
PROC: 5A1D70Z Performance of Urinary Filtration, Intermittent, Less than 6 Hours Per Day (ICD-10-PCS; 2017-03-04)
PROC: 5A1D70Z Performance of Urinary Filtration, Intermittent, Less than 6 Hours Per Day (ICD-10-PCS; 2017-03-06)
DX: J69.0 Pneumonitis due to inhalation of food and vomit (principal); N18.6 End stage renal disease; I50.33 Acute on chronic diastolic (congestive) heart failure; E87.1 Hypo-osmolality and hyponatremia; I13.2 Hypertensive heart and chronic kidney disease with heart failure and with stage 5 chronic kidney disease, or end stage renal disease; E11.22 Type 2 diabetes mellitus with diabetic chronic kidney disease; E11.40 Type 2 diabetes mellitus with diabetic neuropathy, unspecified; E11.65 Type 2 diabetes mellitus with hyperglycemia; E78.5 Hyperlipidemia, unspecified; I25.10 Atherosclerotic heart disease of native coronary artery without angina pectoris; J15.6 Pneumonia due to other Gram-negative bacteria; E87.5 Hyperkalemia; I48.91 Unspecified atrial fibrillation; R19.7 Diarrhea, unspecified; Z95.5 Presence of coronary angioplasty implant and graft; Z99.2 Dependence on renal dialysis; Z98.49 Cataract extraction status, unspecified eye; Z85.118 Personal history of other malignant neoplasm of bronchus and lung; Z88.8 Allergy status to other drugs, medicaments and biological substances; Z84.1 Family history of disorders of kidney and ureter; Z82.49 Family history of ischemic heart disease and other diseases of the circulatory system; Z79.82 Long term (current) use of aspirin; Z79.899 Other long term (current) drug therapy

== ENCOUNTER 2017-03-11 11:40 | Inpatient (IN) | payer MEDICARE ==
[~2017-03-11] VITALS: Ht 160 cm; Wt 49.0 kg
[~2017-03-11 11:40] MED LIST changes: +ATORVASTATIN CA40 MG PO; +CARDIZEM CD120 MG PO; +DUONEB 2.5-0.5 M3 ML INH; +ELIQUIS2.5 MG PO; +FLORANEX TABLE1 EACH PO; +FLORASTOR250 MG PO; +LANTUS100 UNIT/M SUBQ; +LEVAQUIN 500 M500 M1 PO; +LIPITOR40 MG PO; +NORVASC5 M1 PO; +NOVOLOG100 UNIT/1 SUBQ; +PACERONE 200 M200 M1 PO; +ZYKADIA150 MG PO
[2017-03-11 11:56] VITALS: BP 135/42
[2017-03-11 12:13] LABS: BE -4.8 mmol/L (-2 to +3); HCO3 21.5 mmol/L (22.0-26.0); PCO2 44.8 mmHg (35.0-45.0)
[2017-03-11 12:15] LABS: pH 7.299 (7.340-7.450)
[2017-03-11 12:15] LABS: HEMATOCRIT 29.9 % (37.0-47.0); HEMOGLOBIN 9.3 gm/dL (12.0-15.0); MCH 28.5 pg (26.0-34.0); MCHC 31.1 g/dL (28.0-37.0); MCV 91.5 fL (80.0-100.0); NUCLEATED RBCS 0 /100WBC; PLATELET COUNT* 176 thou/uL (150-400); RBC 3.27 mil/uL (4.20-5.00); RDW-CV 18.3 % (10.5-14.5)
[2017-03-11 12:23] LABS: CALCIUM 8.9 mg/dL (8.5-10.1); CREATININE 7.7 mg/dL (0.6-1.3); POTASSIUM 4.9 mmol/L (3.5-5.1)
[2017-03-11 12:27] LABS: ALBUMIN 2.8 g/dL (3.4-5.0); TOTAL BILIRUBIN 0.3 mg/dL (<0.1-1.0); TOTAL PROTEIN 6.7 g/dL (6.4-8.2)
[2017-03-11 12:34] LABS: ABSOLUTE MONOCYTES 0.5 thou/uL (0.0-1.2); ABSOLUTE NEUTROPHILS 4.4 thou/uL (1.6-8.1); PLATELET ESTIMATE ADEQUATE
[2017-03-11 15:28] VITALS: BP 117/42
--- NOTE | 2017-03-11 16:00 | NUR ---
RECEIVED REPORT FROM ROBERT Johnston RN. STATES THAT PT WILL GO TO CT THEN STRAIGHT TO DIALYSIS BEFORE COMING TO TELEMETRY UNIT. PT HAS TELE MONITOR ON AND IS SR ON MONITOR.
[2017-03-11 20:00] VITALS: BP 133/51
[2017-03-11 23:42] VITALS: BP 129/47
[2017-03-12 03:40] VITALS: BP 135/51
[2017-03-12 05:53] LABS: ABSOLUTE EOSINOPHILS 0.1 thou/uL (0.0-0.7); ABSOLUTE LYMPHOCYTES 0.8 thou/uL (0.8-5.3); ABSOLUTE MONOCYTES 0.7 thou/uL (0.0-1.2); ABSOLUTE NEUTROPHILS 4.3 thou/uL (1.6-8.1); BASOPHILS 0.3 %; EOSINOPHILS 1.1 %; HEMATOCRIT 30.6 % (37.0-47.0); HEMOGLOBIN 9.4 gm/dL (12.0-15.0); LYMPHOCYTES 13.2 %; MCH 27.6 pg (26.0-34.0); MCHC 30.8 g/dL (28.0-37.0); MCV 89.8 fL (80.0-100.0); MONOCYTES 12.1 %; MPV 9.8 fl. (7.2-11.1); NUCLEATED RBCS 0 /100WBC; PLATELET COUNT* 159 thou/uL (150-400); POLYS 73.3 %; RBC 3.41 mil/uL (4.20-5.00); RDW-CV 18.4 % (10.5-14.5); WBC 5.9 thou/uL (4.0-11.0)
[2017-03-12 06:21] LABS: CALCIUM 8.7 mg/dL (8.5-10.1); MAGNESIUM 1.8 mg/dL (1.8-2.4); PHOSPHORUS* 3.5 mg/dL (2.5-4.9); POTASSIUM 4.8 mmol/L (3.5-5.1)
[2017-03-12 06:22] LABS: CREATININE 3.8 mg/dL (0.6-1.3)
[2017-03-12 06:23] LABS: PREALBUMIN 17.5 mg/dL (18.0-35.7)
--- NOTE | 2017-03-12 07:15 | NUR ---
ASSUMED CARE OF PT ASSESSED AND DOCUMENTED. PT IS ON CXARDIAC MONITER TRACING SB HR 58. PT IS A&O WITH NO C/O PAIN. VSS WNL. PT IS AFEBRILE. PT IS ON 3L OF 02 AND HAS NOTED WHEEZES ON EXSPIRATION. PT + FOR THRILL AND BRUIT IN FISTULA. WM.
[2017-03-12] MEDS ORDERED: CREON DR 6,0001 EACH PO (07:49)
--- NOTE | 2017-03-12 07:53 | NUR ---
PATIENT WAS BACK ON UNIT AT 1999 FROM DIALYSIS. PATIENT HAS SINCE BEEN STABLE. BLOOD SUGARS CONTROLLED THIS SHIFT. PAIN IN LEGS RELIEVED WITH OXYCODONE. PATIENT ON 3L O2 NC WITH SATS >92%. IV ABX INFUSED WITH NO ADVERSE REACTIONS. HOURLY ROUNDING OSBERVED. CALL LIGHT WITHIN REACH
[2017-03-12 08:00] VITALS: BP 121/43
[2017-03-12 11:30] VITALS: BP 121/40
--- NOTE | 2017-03-12 12:15 | NUR ---
CM ASSESSMENT: Pt is A&O. Known to this CM from previous hospital stay. Pt dc on 03/08/17 to [facility]. Pt was at dialysis yesterday and BS were high, so was sent here to the hospital. Pt plans to return to [facility] at dc, facility able to accept Pt back at id. Pt normally resides at home with her . Uses a walker or cane for mobility. Pt received HD at [facility] BS, transports. assists with ADLs. No hx of HH. Following.
[2017-03-12 15:30] VITALS: BP 114/41
--- NOTE | 2017-03-12 17:43 | NUR ---
PT HAS RESTED IN HER ROOM THIS SHIFT. IS AT BEDSIDE, PT HAS HAD NO S OR SX OF ADVERSE REACTION TO ABT. SHE HAS HAD NO C/O PAIN OR DISCOMFORT. EDUCATION GIVEN ON DEMAND. HOURLY ROUNDING COMPLETE. NASAL SWAB OBTAINED AND SENT TO LAB. RESULTS ARE PENDING.
[2017-03-12 20:00] VITALS: BP 121/47
[2017-03-13 00:15] VITALS: BP 102/40
[2017-03-13 03:52] VITALS: BP 120/89
--- NOTE | 2017-03-13 05:02 | NUR ---
PT MED/SURGE. PT A&O X4 CALM COOPERITVE. BP BP RUNS SOFT. PT REPORTS SHE WANTS TO GO DIALYSIS EARLY SO SHE CAN DISCHARGE EARLY. 3L O2 SAT 98. SR-SB ON THE MONITOR. PT DENIES PAIN BUT IS GIVEN SCHEDULED OXY FOR RESTLESS LEGS. BM REPORTED 2 DAYS AGO. VITALS WNL. FALL PRECAUTIONS IN PLACE. HOURLY ROUNDING FOR SAFETY.
[2017-03-13 05:04] LABS: ABSOLUTE EOSINOPHILS 0.1 thou/uL (0.0-0.7); ABSOLUTE LYMPHOCYTES 0.8 thou/uL (0.8-5.3); ABSOLUTE MONOCYTES 0.7 thou/uL (0.0-1.2); ABSOLUTE NEUTROPHILS 3.8 thou/uL (1.6-8.1); BASOPHILS 0.5 %; EOSINOPHILS 1.1 %; HEMATOCRIT 27.9 % (37.0-47.0); HEMOGLOBIN 8.8 gm/dL (12.0-15.0); LYMPHOCYTES 15.2 %; MCH 28.5 pg (26.0-34.0); MCHC 31.6 g/dL (28.0-37.0); MCV 90.1 fL (80.0-100.0); MPV 10.1 fl. (7.2-11.1); NUCLEATED RBCS 0 /100WBC; PLATELET COUNT* 140 thou/uL (150-400); POLYS 70.2 %; RBC 3.09 mil/uL (4.20-5.00); RDW-CV 18.7 % (10.5-14.5); WBC 5.4 thou/uL (4.0-11.0)
[2017-03-13 05:50] LABS: CALCIUM 8.5 mg/dL (8.5-10.1); POTASSIUM 5.7 mmol/L (3.5-5.1)
[2017-03-13 05:54] LABS: CREATININE 5.8 mg/dL (0.6-1.3)
--- NOTE | 2017-03-13 11:10 | NUR ---
Pt should be ready to dc back to [facility] tomorrow. Following.
[2017-03-13 13:00] VITALS: BP 128/41
[2017-03-13 16:00] VITALS: BP 118/41
--- NOTE | 2017-03-13 16:55 | NUR ---
RECEIVED REPORT FROM NOC RN. PRINTING AGENT READY FOR PT. TRANSPORTED UP TO DIALYSIS AREA VIA BED AND NURSING STAFF. PT RETURNED TO TELE UNIT AT 1230. PT SITTING AT SIDE OF BED EATING LUNCH. A & O X 4, ABLE TO COMMUNICATE NEEDS TO STAFF. VS OBTAINED. ASSESSMENT COMPLETE. MED/SURG STATUS. PT STATES SHE WANTS TO GO HOME. PHYSICIAN TO ROOM FOR ASSESSMENT AND DISCUSSED POSSIBLE DC TOMORROW. NEEDED ITEMS AND CALL LIGHT WITHIN REACH.
[2017-03-13 20:00] VITALS: BP 125/45
[2017-03-14 00:27] VITALS: BP 138/43
--- NOTE | 2017-03-14 04:52 | NUR ---
A&O X4 CALM COOPERITVE. PT X1 ASSIST. PLAN IS TO DISCHARGE. BS WAS 195. NO BM REPORTED IN 3 DAYS. MED/SURGE PT. FALL PRECAUTIONS IN PLACE. VITALS WNL. HOURLY ROUNDING FOR SAFETY.
[2017-03-14 07:30] VITALS: BP 118/44
--- NOTE | 2017-03-14 11:00 | NUR ---
RECEIVED PT CARE 0700. PT IS ALERT AND ORIENTED X4. VSS. PT UP STANDBY ASSIST IN ROOM WITH BATHROOM PRIVILEDGES. GAIT IS STEADY. DENIES ANY SOA. O2 SAT 95% ON 3L NC. SHE STATES SHE WEARS 3L AT HOME WELL. AM ASSESSMENT CHARTED. MEDS PER APR. PLANNING FOR DC TO [facility] THIS AFTERNOON.
--- NOTE | 2017-03-14 11:37 | NUR ---
Pt discharging back to [facility] today, faxed dc orders. Chart copied. Nurse report number provided, . in room and will transport back to facility. CM faxed flowsheets and H&P to [facility].
[2017-03-14 11:57] VITALS: BP 119/43
[2017-03-14 13:09] VITALS: BP 119/43
--- NOTE | 2017-03-14 14:31 | NUR ---
RECEIVED DISCHARGE ORDERS PER DR VEGA. IV DISCONTINUED. REPORT CALLED TO JT FRANCO. ALL BELONGINGS PACKED AND LEAVING WITH PATIENT. PT DENIES ANY QUESTIONS OR CONCERNS. LEAVING VIA WHEELCHAIR ACCOMPANIED BY NURSING STAFF AND THE PATIENTS .
--- NOTE | 2017-03-25 09:12 | CON ---
[address] [address] CONSULTATION Name: SARA BRANDT Room: [address]#: [id number] Admission: 03/11/17 Attend Phys: Jean Dorman MD Discharge: 03/14/17 Date of : 42 Report #: [id number] THIS REPORT FOR: //name// CC: Shilpa Dorman DATE OF SERVICE: 03/11/2017 REQUESTING PHYSICIAN: Jean Dormna M.D. REASON FOR CONSULTATION: Assistance providing dialysis. HISTORY OF PRESENT ILLNESS: The patient is a 76-year-old female with medical history significant for poorly controlled diabetes and end-stage renal disease, who presents to the hospital because blood sugar in dialysis unit was over 500. In the Emergency Room, she was found to have BUN 82, creatinine 7.7, glucose 473, sodium 133, hemoglobin 9.3, and white count 6.0. She was admitted to the hospital. PAST MEDICAL HISTORY: Significant for 1. Uncontrolled diabetes mellitus type 1. 2. History of end-stage renal disease. 3. History of hypertension. 4. Coronary artery disease. 5. Dyslipidemia. 6. History of lung cancer. PHYSICAL EXAMINATION: The patient is examined in the Emergency Room. GENERAL: Awake, alert. VITAL SIGNS: Her blood pressure reviewed. HEENT: Pupils are round. LUNGS: Decreased air movement. CARDIOVASCULAR: Regular rate. ABDOMEN: Soft. LOWER EXTREMITIES: No edema. EXTREMITIES: She has left upper arm fistula that is open. FAMILY HISTORY: Noncontributory. SOCIAL HISTORY: No tobacco or alcohol abuse. ASSESSMENT AND PLAN: End-stage renal disease. [place] [address] CONSULTATION Name: SARA BRANDT Room: [address]#: [id number] Admission: 03/11/17 Attend Phys: Jean Dorman MD Discharge: 03/14/17 Date of : 42 Report #: [id number] hyperglycemic condition. She will be dialyzed today. I have already talked to my dialysis unit and will provide dialysis within the next several hours. <ELECTRONICALLY SIGNED> By: Lewis Green MD 03/25/17 0912 1306 2124Amax Green MD /[place]
== END 2017-03-14 14:45 | DRG 177 ==
LOC: M.ERS 11:40 → M.TBA-ER 12:51 → M.2W 12:51
PROVIDERS: Emergency Medicine; Physician Assistant; ADMIT Internal Medicine
PROC: 5A1D70Z Performance of Urinary Filtration, Intermittent, Less than 6 Hours Per Day (ICD-10-PCS; principal; 2017-03-11)
PROC: 5A1D70Z Performance of Urinary Filtration, Intermittent, Less than 6 Hours Per Day (ICD-10-PCS; 2017-03-13)
DX: J15.6 Pneumonia due to other Gram-negative bacteria (principal); N18.6 End stage renal disease; J96.20 Acute and chronic respiratory failure, unspecified whether with hypoxia or hypercapnia; E11.00 Type 2 diabetes mellitus with hyperosmolarity without nonketotic hyperglycemic-hyperosmolar coma (NKHHC); E87.2 Acidosis; E44.0 Moderate protein-calorie malnutrition; R65.10 Systemic inflammatory response syndrome (SIRS) of non-infectious origin without acute organ dysfunction; Z68.1 Body mass index [BMI] 19.9 or less, adult; I12.0 Hypertensive chronic kidney disease with stage 5 chronic kidney disease or end stage renal disease; E11.40 Type 2 diabetes mellitus with diabetic neuropathy, unspecified; E11.22 Type 2 diabetes mellitus with diabetic chronic kidney disease; E11.65 Type 2 diabetes mellitus with hyperglycemia; E78.5 Hyperlipidemia, unspecified; I25.10 Atherosclerotic heart disease of native coronary artery without angina pectoris; Z99.2 Dependence on renal dialysis; Z79.4 Long term (current) use of insulin; Z85.118 Personal history of other malignant neoplasm of bronchus and lung; Z88.8 Allergy status to other drugs, medicaments and biological substances; Z82.49 Family history of ischemic heart disease and other diseases of the circulatory system; Z98.49 Cataract extraction status, unspecified eye; Z95.5 Presence of coronary angioplasty implant and graft; Z79.899 Other long term (current) drug therapy

== ENCOUNTER 2017-03-20 14:07 | Inpatient (IN) | payer MEDICARE ==
[~2017-03-20] VITALS: Ht 157.5 cm; Wt 57.2 kg
[~2017-03-20 14:07] MED LIST changes: +CREON DR 6,0001 EACH PO
[2017-03-20 14:12] VITALS: BP 129/46
[2017-03-20] MEDS ORDERED: ZYKADIA150 MG PO (14:30)
[2017-03-20] MEDS ORDERED: LEVAQUIN 500 M500 M2 PO (14:30)
[2017-03-20] MEDS ORDERED: CREON DR 6,0001 EACH PO (14:32)
[2017-03-20] MEDS ORDERED: ATROVENT HFA14 GM INH (14:33)
[2017-03-20 14:39] LABS: HEMATOCRIT 28.7 % (37.0-47.0); HEMOGLOBIN 8.8 gm/dL (12.0-15.0); MCH 28.3 pg (26.0-34.0); MCHC 30.5 g/dL (28.0-37.0); MCV 92.8 fL (80.0-100.0); MPV 10.1 fl. (7.2-11.1); NUCLEATED RBCS 0 /100WBC; PLATELET COUNT* 146 thou/uL (150-400); RDW-CV 18.3 % (10.5-14.5); WBC 4.7 thou/uL (4.0-11.0)
[2017-03-20 14:47] LABS: ANION GAP 5 mmol/L (7-16); BUN 46 mg/dL (7-18); CALCIUM 9.3 mg/dL (8.5-10.1); CHLORIDE 97 mmol/L (98-107); CO2 36 mmol/L (21-32); CREATININE 5.3 mg/dL (0.6-1.3); GLUCOSE 250 mg/dL (70-99); SODIUM 138 mmol/L (136-145)
[2017-03-20 14:50] LABS: APTT 32.2 Seconds (25.0-31.3); INR 1.2
[2017-03-20 15:01] LABS: ABSOLUTE LYMPHOCYTES 0.4 thou/uL (0.8-5.3); ABSOLUTE MONOCYTES 0.3 thou/uL (0.0-1.2); ABSOLUTE NEUTROPHILS 3.9 thou/uL (1.6-8.1); ATYPICAL LYMPHS 2 %
[2017-03-20 15:03] LABS: PLATELET ESTIMATE ADEQUATE
[2017-03-20 15:08] LABS: ALBUMIN 2.8 g/dL (3.4-5.0); ALKALINE PHOSPHATASE 133 U/L (46-116); CK-MB MASS 3.5 ng/mL (<0.5-3.6); LIPASE 64 U/L (73-393); MAGNESIUM 2.4 mg/dL (1.8-2.4); NT-PRO BRAIN NAT PEPTIDE 4072 pg/mL (<300); SGOT 56 U/L (15-37); SGPT 54 U/L (30-65); TOTAL BILIRUBIN 0.4 mg/dL (<0.1-1.0); TOTAL PROTEIN 6.5 g/dL (6.4-8.2); TROPONIN-I LEVEL <0.06 ng/mL (<0.06)
[2017-03-20 17:27] VITALS: BP 111/42
[2017-03-20 17:40] VITALS: BP 125/40
[2017-03-20 19:20] VITALS: BP 112/35
[2017-03-21] VITALS: BP 100/37
[2017-03-21 02:25] VITALS: BP 129/42
[2017-03-21 07:30] VITALS: BP 116/38
--- NOTE | 2017-03-21 13:38 | EKG ---
[place] [address] ELECTROCARDIOGRAM REPORT Name: SARA BRANDT Room: [address] ADM IN .R.#: [id number] Admission: 03/20/17 Attend Phys: Felisha Gonzalez MD Discharge: Date of : 42 Report #: [id number] THIS REPORT FOR: //name// [facility] ED Test Date: 2017-03-20 Test Time: 14:13:01 Pat Name: SARA BRANDT Department: Room: [facility] Gender: F Staff Certified Nurse Midwife: : 1940 Requested By: Aidan Ye Order Number: [id number] MD: Jose C Cardoza Measurements Intervals [place] Rate: 41 P: 7 VA: 194 QRS: -15 QRSD: 96 T: 67 QT: 474 QTc: 392 Interpretive Statements Sinus bradycardia Borderline left axis deviation Nonspecific T abnormalities, lateral leads Compared to ECG 03/08/2017 09:31:22 T-wave abnormality now present Left ventricular hypertrophy no longer present Early repolarization no longer present Electronically Signed On 03-21-2017 13:38:31 PHOTOCOPYING MACHINE OPERATOR by Jose C Cardoza [email or web address] <ELECTRONICALLY SIGNED> By: Jose C Cardoza MD, FACC 03/21/17 1338 1413 1413 Jose C Cardoza MD, FAC /EPI
[2017-03-21 15:30] VITALS: BP 139/45
[2017-03-21 19:50] VITALS: BP 143/53
[2017-03-22] VITALS: BP 129/41
[2017-03-22 04:00] VITALS: BP 132/46
[2017-03-22 05:54] LABS: ALBUMIN 2.6 g/dL (3.4-5.0); CALCIUM 8.3 mg/dL (8.5-10.1); POTASSIUM 4.8 mmol/L (3.5-5.1)
[2017-03-22 07:30] VITALS: BP 144/44
[2017-03-22 15:30] VITALS: BP 125/41
[2017-03-22 20:10] VITALS: BP 157/51
[2017-03-23] VITALS (7 sets, daily range): BP systolic 125–151; BP diastolic 40–54
[2017-03-24 00:13] VITALS: BP 133/52
[2017-03-24 04:03] VITALS: BP 147/51
[2017-03-24 08:00] VITALS: BP 119/35
[2017-03-24 11:42] VITALS: BP 114/38
[2017-03-24 16:00] VITALS: BP 117/60
[2017-03-24 19:55] VITALS: BP 116/50
[2017-03-25] VITALS (12 sets, daily range): BP systolic 102–150; BP diastolic 29–77
[2017-03-25 05:03] LABS: HEMATOCRIT 27.7 % (37.0-47.0); HEMOGLOBIN 8.5 gm/dL (12.0-15.0); MCH 28.5 pg (26.0-34.0); MCHC 30.9 g/dL (28.0-37.0); MCV 92.4 fL (80.0-100.0); NUCLEATED RBCS 0 /100WBC; PLATELET COUNT* 144 thou/uL (150-400); RBC 2.99 mil/uL (4.20-5.00); RDW-CV 19.4 % (10.5-14.5); WBC 8.1 thou/uL (4.0-11.0)
[2017-03-25 05:29] LABS: CALCIUM 8.5 mg/dL (8.5-10.1)
[2017-03-25 06:02] LABS: CREATININE 6.2 mg/dL (0.6-1.3)
[2017-03-25 08:21] LABS: ABSOLUTE LYMPHOCYTES 0.8 thou/uL (0.8-5.3); ABSOLUTE MONOCYTES 0.5 thou/uL (0.0-1.2); ABSOLUTE NEUTROPHILS 6.8 thou/uL (1.6-8.1); ANISOCYTOSIS 1+; MACROCYTES 1+; PLATELET ESTIMATE ADEQUATE
[2017-03-25 08:22] LABS: HYPOCHROMASIA 2+
--- NOTE | 2017-03-25 08:34 | CON ---
[address] [address] CONSULTATION Name: KARLYSARA Persaud Room: [address] IN ..#: [id number] Admission: 03/20/17 Attend Phys: Felisha Gonzalez MD Discharge: Date of : 42 Report #: [id number] THIS REPORT FOR: //name// CC: Shilpa Dyson MD [facility] CHRISTEL Gonzalez INDICATION: Bradycardia. HISTORY OF PRESENT ILLNESS: The patient is a very pleasant 76-year-old white female who was admitted to the hospital with bradycardia. She was recently hospitalized with new onset atrial fibrillation. On medication, she is maintaining sinus rhythm. Her heart rates are in the 40s. She was on a combination of amiodarone and diltiazem. She denies chest pain, tightness or pressure. She has no obvious shortness of breath, but says she has to focus on her breathing. She is without other cardiac complaint. She is not having palpitations. She does report feeling "cold." PAST MEDICAL HISTORY: 1. Paroxysmal atrial fibrillation. 2. End-stage renal disease, on dialysis. 3. Hypertension. 4. Type 2 diabetes mellitus. 5. Lung cancer, on chemotherapy. 6. Recent pneumonia. 7. Irritable bowel. 8. Peripheral neuropathy. PAST SURGICAL HISTORY: Cataract surgery remotely, left arm fistula remotely, bowel resection remotely. FAMILY HISTORY: Noncontributory. SOCIAL HISTORY: The patient is . She does not smoke. She does not drink alcohol. Recently, she has been in and out of the hospital on rehabilitation. She has a who helps with her care. ALLERGIES: HEPARIN. HOME MEDICATIONS: Floranex tablet 1 p.o. b.i.d., amiodarone 400 mg p.o. b.i.d., Creon 1 capsule b.i.d., Eliquis 2.5 mg b.i.d., Lipitor 40 mg at bedtime, Caltrate with D 1 tablet daily, Zykadia 150 mg 3 capsules at bedtime, Cardizem CD 120 mg daily, Renal Caps 1 tablet daily, NovoLog insulin sliding scale, Lantus 6 units subcutaneous b.i.d., DuoNeb inhaler q.i.d., Levaquin 500 [place] [address] CONSULTATION Name: SARA BRANDT Room: [address]#: [id number] Admission: 03/20/17 Attend Phys: Felisha Gonzalez MD Discharge: Date of : 42 Report #: [id number] other day, Nitrostat sublingual p.r.n., OxyContin 10 mg b.i.d., Florastor 250 mg b.i.d., Zoloft 50 mg at bedtime. REVIEW OF SYSTEMS: On 14-point review of systems, she reports a history of convulsions and seizures remotely. She has dyspnea on exertion. She reports a history of heart murmur. She has type 2 diabetes mellitus. She reports anemia, lung cancer and previous blood clot. She has medical allergies to HEPARIN. She reports arthritis and she wears upper dentures. Otherwise, 14-point review of systems was unremarkable. PHYSICAL EXAMINATION: VITAL SIGNS: Blood pressure 129/42, pulse 50 and regular. GENERAL: This is a pleasant, thin, elderly female who is slightly lethargic, but does not appear to be in distress. HEENT: Normocephalic, atraumatic. NECK: Shows no jugular venous distention. I do not appreciate carotid bruit. CHEST: Reveals clear lung [place]. CARDIOVASCULAR: Reveals a bradycardic rhythm that is regular. There is a soft grade 1 to 2/6 holosystolic murmur heard left of the sternal border. I do not appreciate gallop. ABDOMEN: Soft. Bowel sounds present. EXTREMITIES: Without clubbing, cyanosis or edema. SKIN: Warm and dry. IMPRESSION AND RECOMMENDATION: 1. Paroxysmal atrial fibrillation, presently maintaining sinus rhythm on a combination of diltiazem and amiodarone. 2. Bradycardia. The patient shows sinus bradycardia on telemetry. We will hold amiodarone and diltiazem at this time. Once the heart rate picks up a bit, we will resume amiodarone at lower dose. 3. Lung cancer. The patient presently on oral chemotherapeutic agents. 4. Pneumonia. The patient on antibiotic therapy at this time. 5. End-stage renal disease. The patient has dialysis today. 6. Anemia of chronic disease. <ELECTRONICALLY SIGNED> By: Jose C Cardoza MD, FACC 03/25/17 0834 0911 1001Jose C Cardoza MD, FACC /nt
[2017-03-25 09:42] LABS: BE -13.1 mmol/L (-2 to +3); HCO3 18.7 mmol/L (22.0-26.0); PO2 99.5 mmHg (75.0-100.0)
[2017-03-25 09:44] LABS: pH 6.962 (7.340-7.450)
[2017-03-25 09:45] LABS: PCO2 84.8 mmHg (35.0-45.0)
[2017-03-25 10:22] LABS: HEMATOCRIT 29.3 % (37.0-47.0); HEMOGLOBIN 8.4 gm/dL (12.0-15.0); MCH 28.7 pg (26.0-34.0); MCHC 28.7 g/dL (28.0-37.0); MPV 11.6 fl. (7.2-11.1); RBC 2.93 mil/uL (4.20-5.00); RDW-CV 19.4 % (10.5-14.5); WBC 12.9 thou/uL (4.0-11.0)
[2017-03-25 10:23] LABS: MCV 100.1 fL (80.0-100.0)
[2017-03-25 10:32] LABS: ANION GAP 24 mmol/L (7-16); BUN 62 mg/dL (7-18); CALCIUM 9.7 mg/dL (8.5-10.1); CHLORIDE 94 mmol/L (98-107); CO2 21 mmol/L (21-32); CREATININE 6.7 mg/dL (0.6-1.3); GLUCOSE 397 mg/dL (70-99); POTASSIUM 5.9 mmol/L (3.5-5.1); SODIUM 139 mmol/L (136-145)
[2017-03-25 10:40] LABS: TROPONIN-I LEVEL <0.06 ng/mL (<0.06)
[2017-03-25 11:22] LABS: BE -13.5 mmol/L (-2 to +3); HCO3 13.6 mmol/L (22.0-26.0); PCO2 36.2 mmHg (35.0-45.0); PO2 67.8 mmHg (75.0-100.0)
[2017-03-25 11:25] LABS: pH 7.194 (7.340-7.450)
--- NOTE | 2017-03-25 15:19 | CARD ---
[address] [address] CARDIAC CATH REPORT Name: SARA BRANDT Room: [address] IN [facility].#: [id number] Admission: 03/20/17 Attend Phys: Felisha Gonzalez MD Discharge: Date of : 42 Report #: [id number] THIS REPORT FOR: //name// CC: Shilpa Gonzalez INDICATION: Symptomatic severe sinus bradycardia. PROCEDURE: Temporary pacemaker placement. PROCEDURE DESCRIPTION: The patient was brought urgently to the cardiac catheterization lab with sinus bradycardia with heart rates in the 30s. The area of the right groin was prepped and draped in sterile fashion. Local anesthesia was achieved with 1% lidocaine. Next, using an 18-gauge needle, the femoral vein was accessed. A 6-Nepali sheath was placed with the percutaneous technique. Next, a balloon-tipped temporary pacing wire was advanced to a stable position with the RV apex. Threshold of 1 volt was verified. The patient was paced at a rate of 80 beats per minute. The catheter and sheath were secured and sutured into the right groin and dressed in sterile fashion. The patient was returned to the ICU in stable condition. IMPRESSION: 1. Severe symptomatic sinus bradycardia. 2. Successful temporary pacemaker placement. <ELECTRONICALLY SIGNED> By: Jose C Cardoza MD, [facility] 03/25/[address] [place], [place] [address]annette Cardoza MD, [facility] /nt
[2017-03-25 18:33] LABS: ALBUMIN 2.5 g/dL (3.4-5.0); CALCIUM 8.7 mg/dL (8.5-10.1); TOTAL BILIRUBIN 0.9 mg/dL (<0.1-1.0); TOTAL PROTEIN 5.8 g/dL (6.4-8.2)
[2017-03-25 18:34] LABS: CREATININE 3.7 mg/dL (0.6-1.3); POTASSIUM 4.8 mmol/L (3.5-5.1)
[2017-03-26] VITALS (18 sets, daily range): BP systolic 99–139; BP diastolic 44–53
[2017-03-26 06:09] LABS: HEMATOCRIT 25.4 % (37.0-47.0); HEMOGLOBIN 8.1 gm/dL (12.0-15.0); MCH 28.4 pg (26.0-34.0); MCHC 31.7 g/dL (28.0-37.0); MCV 89.7 fL (80.0-100.0); MPV 10.6 fl. (7.2-11.1); RBC 2.83 mil/uL (4.20-5.00); RDW-CV 19.8 % (10.5-14.5); WBC 19.7 thou/uL (4.0-11.0)
[2017-03-26 06:37] LABS: ALBUMIN 2.3 g/dL (3.4-5.0); CALCIUM 8.5 mg/dL (8.5-10.1); CREATININE 4.1 mg/dL (0.6-1.3); POTASSIUM 5.1 mmol/L (3.5-5.1); TOTAL BILIRUBIN 0.7 mg/dL (<0.1-1.0); TOTAL PROTEIN 5.5 g/dL (6.4-8.2); TROPONIN-I LEVEL 0.45 ng/mL (<0.06)
[2017-03-26 08:15] LABS: HCO3 23.8 mmol/L (22.0-26.0); PCO2 27.1 mmHg (35.0-45.0); PO2 100.3 mmHg (75.0-100.0); pH 7.562 (7.340-7.450)
--- NOTE | 2017-03-26 12:06 | CON ---
[address] [address] CONSULTATION Name: SARA BRANDT Room: [address] IN .R.#: [id number] Admission: 03/20/17 Attend Phys: Felisha Gonzalez MD Discharge: Date of : 42 Report #: [id number] THIS REPORT FOR: //name// CC: Shilpa Gonzalez REASON FOR CONSULTATION: Respiratory failure. HISTORY OF PRESENT ILLNESS: The patient was intubated and sedated at the time of my evaluation. I reviewed the medical records and discussed with the nursing staff. She is a 76-year-old female patient who was admitted to the hospital on 03/20/2017 with a bradycardia. Her background history includes history of lung cancer, which I do not have much details about it, but apparently she is getting chemotherapy and she has a Port-A-Cath. She was brought in because of bradycardia. She was hospitalized recently here with atrial fibrillation. She was on Cardizem and amiodarone. Apparently reviewing the record upon hospitalization, she had no shortness of breath and she had no chest pain. This morning, she underwent placement of temporary pacemaker; however, per the RN report the patient developed PA and code blue was called. She was coded for 10 minutes and after that she was intubated. When I saw the patient, she was on the ventilator, sedated with propofol and she was requiring Levophed. Her O2 saturation on the monitor was more than 90%. She was on 60% FIO2. Her lactic acid was elevated. PAST MEDICAL HISTORY: Paroxysmal AFib, end-stage renal disease on dialysis, hypertension, diabetes mellitus, lung cancer apparently on chemotherapy, history of pneumonia long time ago, irritable bowel syndrome and peripheral neuropathy. PAST SURGICAL HISTORY: Cataract surgery, left fistula placement and bowel resection. FAMILY HISTORY: Noncontributory. SOCIAL HISTORY: Per the record, she does not smoke and does not drink alcohol. However, I could not elaborate further if she had a history of smoking in the past. No family at the bedside and she is intubated. ALLERGIES: HEPARIN. HOME MEDICATIONS: Per the record, amiodarone, Lipitor, Eliquis, Creon, insulin, Renal Caps, Lantus, Levaquin, nebulization treatment, oxycodone and Nitrostat. REVIEW OF SYSTEMS: At this point, not obtainable. [place] [address] CONSULTATION Name: SARA BRANDT Room: [address]#: [id number] Admission: 03/20/17 Attend Phys: Felisha Gonzalez MD Discharge: Date of : 42 Report #: [id number] PHYSICAL EXAMINATION: GENERAL: Elderly lady, intubated, on sedation, on the vent. No significant distress. VITAL SIGNS: Her O2 saturation on the monitor more than 90% on 60% FiO2, blood pressure 112/29; however, she is on Levophed 17 mcg. Her temperature is 36.6. HEENT: Head is normocephalic and atraumatic. Pupils are equal and reactive to light. External ear looks healthy and normal. ET tube in place. Gastric tube in place. CHEST: Air movement heard bilaterally. No wheezes and no crackles. HEART: S1 and S2. ABDOMEN: Benign, soft, lax, nontender, positive bowel sounds. EXTREMITIES: Lower extremity: No edema noted. She has right groin entry of temporary pacemaker. No calf tenderness in the lower extremities. No signs of DVT. PSYCHIATRIC: Mood and affect could not be evaluated. NEUROLOGICAL: She is sedated and could not be evaluated. LYMPHATICS: No palpable lymph node. SKIN: No rash was noted. LABORATORY DATA: Her chest x-ray today post-intubation showed the tube is around 1.7 cm above the maile. She had left lower lobe and right lower lobe infiltrates. Her white blood count today is 12.9 and upon hospitalization was 4.7 and hemoglobin is 8.4 with platelets of 140. Her ABGs during the code is 6.9/84/99 however, after intubation 7.2/36/ and this was done on 30% FiO2. Since then, the FIO2 was increased. Her creatinine is 6.7, potassium 5.9 with a BUN of 62 after the code. IMPRESSION: 1. Acute respiratory failure, hypoxic and hypercapnic. 2. Status post cardiac arrest, PA. 3. History of lung cancer and chemotherapy. 4. Presumed COPD. 5. Shock most likely cardiac at this point. 6. Pulmonary infiltrate, pneumonia. I am going to add steroids for the patient. She will be on scheduled nebulization treatment. Continue to wean the oxygen down. We will do a followup chest x-ray. We will pull the ET tube 1 cm above. Wean the vasopressors down. Dialysis per Nephrology in a day or two depending on her mental status. We will decide regarding weaning off the vent once she is more hemodynamically stable. Condition is guarded and prognosis is guarded. [address] [address] CONSULTATION Name: SARA BRANDT Room: M005-P [facility] IN .R.#: [id number] Admission: 03/20/17 Attend Phys: Felisha Gonzalez MD Discharge: Date of : 42 Report #: [id number] Thank you for the consult. Discussed with RN. <ELECTRONICALLY SIGNED> By: Adrian Maldonado MD 03/26/17 1206 1244 2310Adrian Maldonado MD /nt
--- NOTE | 2017-03-26 16:28 | EKG ---
[place] [address] ELECTROCARDIOGRAM REPORT Name: SARA BRANDT Room: [address] ADM IN M.R.#: [id number] Admission: 03/20/17 Attend Phys: Felisha Gonzalez MD Discharge: Date of : 44 Report #: [id number] THIS REPORT FOR: //name// [facility] Test Date: 2017-03-26 Test Time: 13:44:28 Pat Name: SARA BRANDT Department: Room: [address] Gender: F Urban Anthropologist: 2 : 1940 Requested By: Felisha Gonzalez Order Number: [id number] Reading MD: Jose C Cardoza Measurements Intervals [place] Rate: 80 P: 0 DE: 192 QRS: -71 QRSD: 144 T: 134 QT: 533 QTc: 615 Interpretive Statements Ventricular-paced rhythm No further analysis attempted due to paced rhythm Compared to ECG 03/20/2017 14:13:01 Sinus bradycardia no longer present T-wave abnormality no longer present Electronically Signed On 03-26-2017 16:28:34 TRANSPORT MEDIC by Jose C Cardoza [email or web address] <ELECTRONICALLY SIGNED> By: Jose C Cardoza MD, FACC 03/26/17 1628 1344 1344 Jose C Cardoza MD, [facility] /EPI
[2017-03-27] VITALS (27 sets, daily range): BP systolic 75–184; BP diastolic 39–75
[2017-03-27 05:32] LABS: HEMOGLOBIN 8.1 gm/dL (12.0-15.0); MCH 28.7 pg (26.0-34.0); MCHC 32.5 g/dL (28.0-37.0); MCV 88.4 fL (80.0-100.0); MPV 10.7 fl. (7.2-11.1); RBC 2.83 mil/uL (4.20-5.00); RDW-CV 19.8 % (10.5-14.5); WBC 17.2 thou/uL (4.0-11.0)
[2017-03-27 05:44] LABS: ALBUMIN 2.2 g/dL (3.4-5.0); CALCIUM 8.5 mg/dL (8.5-10.1); MAGNESIUM 2.4 mg/dL (1.8-2.4); POTASSIUM 5.2 mmol/L (3.5-5.1); TOTAL BILIRUBIN 0.7 mg/dL (<0.1-1.0); TOTAL PROTEIN 5.2 g/dL (6.4-8.2)
[2017-03-27 05:48] LABS: BE 3.2 mmol/L (-2 to +3); HCO3 26.2 mmol/L (22.0-26.0); PCO2 33.8 mmHg (35.0-45.0); PO2 108.3 mmHg (75.0-100.0); pH 7.508 (7.340-7.450)
--- NOTE | 2017-03-27 10:53 | CON ---
[address] [address] CONSULTATION Name: SARA BRANDT Room: [address] IN ..#: [id number] Admission: 03/20/17 Attend Phys: Felisha Gonzalez MD Discharge: Date of : 42 Report #: [id number] THIS REPORT FOR: //name// CC: Shilpa Gonzalez DATE OF SERVICE: 03/26/2017 ATTENDING PHYSICIAN: Dr. Gonzalez. REASON FOR EVALUATION: Gram-positive septicemia. HISTORY OF PRESENT ILLNESS: Chart reviewed, patient examined. This is a 76-year-old female with extensive history including diabetes mellitus type 2 that has been complicated by neuropathy, vasculopathy, chronic renal failure, now on dialysis since 2012, who has known coronary artery disease as well and lung cancer that is reportedly in remission, has been hospitalized 3 times over the course of the last month, most recently 03/20/2017. She was admitted with bradycardia, did undergo evaluation. She became symptomatic, was evaluated and temporary pacer was placed emergently within 60 minutes in the Intensive Care Unit, did undergo a cardiorespiratory arrest with pulse dissociation, was intubated and is now on mechanical ventilatory support. She is on pressor support as well. One of 2 blood cultures now with growth of gram-positive cocci. She did have a T-max of 100.0. She was empirically started on broad spectrum therapy with piperacillin/tazobactam adjusted to her renal failure as well as dosed with vancomycin. She is not responsive. ALLERGIES: HEPARIN. CURRENT MEDICATIONS: Include vancomycin, insulin, pantoprazole, Zosyn, norepinephrine, sertraline, folic acid. PAST MEDICAL HISTORY: As described above, in addition to the diabetes mellitus and its complications has history of cataracts, hypertension, irritable bowel. SOCIAL HISTORY: Nonsmoker, no ethanol. FAMILY HISTORY: Noncontributory. REVIEW OF SYSTEMS: Not obtainable. PHYSICAL EXAMINATION: GENERAL: She appears chronically ill, undernourished, pale, is lying supine, [place] [address] CONSULTATION Name: SARA BRANDT Room: [address] IN [facility]#: [id number] Admission: 03/20/17 Attend Phys: Felisha Gonzalez MD Discharge: Date of : 42 Report #: [id number] VITAL SIGNS: Temperature 98.5, pulse 80, respirations 16, blood pressure 99/44. SKIN: Warm, dry, no rashes. HEENT: Otherwise, unremarkable. ET tube is in place. NECK: Supple. LUNGS: Few scattered coarse breath sounds. HEART: Regular. ABDOMEN: Soft. There are no peritoneal signs. GENITOURINARY: Deferred. RECTAL: Deferred. LABORATORY DATA: Most recent ABG, pH 7.562, pCO2 of 27.1, pO2 of 100.3 and that was on 60% assist control. Blood cultures as described above, 1/ with gram-positive cocci, collected on the . Electrolytes: Sodium 135, potassium 5.1, chloride 97, bicarbonate is 27, anion gap of 11, BUN and creatinine 44 and 4.1, AST of 9905, ALT of 5619 with a shock liver, protein of 5.5, albumin of 2.3. CBC: White count 19.7, H and H 8.1 and 25.4, platelets of 125. Lactic acid 5.0, down from 14.1. ASSESSMENT: Septic shock, may well have cardiogenic shock as well with multiorgan failure. We will treat empirically and as if this blood culture represents true gram-positive septicemia, potentially a contaminant, however, with her dialysis given the acute nature of her worsening certainly raises a high suspicion. Vancomycin should give us good coverage at this point. Cannot entirely exclude an occult process as well. I think her overall prognosis is quite guarded. Wean off support as allowed. <ELECTRONICALLY SIGNED> By: Benigno Lunsford MD 03/27/17 1053 1006 19Benigno Lunsford MD /nt
--- NOTE | 2017-03-27 15:02 | CON ---
[address] [address] CONSULTATION Name: SARA BRANDT Cori Room: [address] IN .R.#: [id number] Admission: 03/20/17 Attend Phys: Felisha Gonzalez MD Discharge: Date of : 42 Report #: [id number] THIS REPORT FOR: //name// CC: Shilpa Gonzalez NEPHROLOGY CONSULT CONSULTING PHYSICIAN: Felisha Edwards MD REASON FOR CONSULTATION: End-stage kidney disease. HISTORY OF PRESENT ILLNESS: A 76-year-old female with history of end-stage kidney disease, on hemodialysis Saturday, Saturday, and Saturday at [facility], admitted with bradycardia. Cardiology was consulted. She tolerated her dialysis today, had some low blood sugars. She is otherwise feeling well. She has no complaints at present time. REVIEW OF SYSTEMS: Constitutional, psych, heme, eyes, ENT, respiratory, cardiac, GI, , endocrine, all negative except as documented above. PAST MEDICAL HISTORY: End-stage kidney disease, on hemodialysis since 2012, hypertension, diabetes, history of irritable bowel syndrome, history of lung cancer, dyslipidemia, coronary artery disease. MEDICATIONS: Reviewed. FAMILY HISTORY: Mother had kidney disease. SOCIAL HISTORY: No tobacco. PHYSICAL EXAMINATION: VITAL SIGNS: Blood pressure 116/38, pulse has been mostly in the low 40s, temperature 36.4. GENERAL: No acute distress. EYES: Extraocular movements intact. EARS: Externally normal. CARDIOVASCULAR: Bradycardic. LUNGS: Decreased breath sounds. ABDOMEN: Soft. LYMPHATICS: No significant pitting edema. PSYCHIATRIC: Awake, alert. LABORATORY DATA: White cell count 4.7, hemoglobin 8.8, platelets 146. Sodium 130, potassium 4, chloride 97, bicarbonate 36, BUN 46, creatinine of 5.3, [place] [address] CONSULTATION Name: SARA BRANDT Room: [address]#: [id number] Admission: 03/20/17 Attend Phys: Felisha Gonzalez MD Discharge: Date of : 42 Report #: [id number] glucose 250, calcium 9.2, magnesium 2.4. ASSESSMENT AND PLAN: 1. End-stage kidney disease, on hemodialysis Saturday, Saturday and Saturday at [facility]. 2. Bradycardia. Cardiology is following. Her medications are being held. 3. Hyperglycemia. Defer management of insulin to Internal Medicine, not on any oral hypoglycemics. 4. We will continue maintenance dialysis on Saturday, Saturday and Saturday. The patient was dialyzed today. She missed her dialysis yesterday. We will follow her dialysis needs and check labs again in the a.m. Thank you for requesting my opinion in the care and management of this patient. <ELECTRONICALLY SIGNED> By: Lewis Green MD 03/27/17 1502 1723 [id number] Qiana Devries MD /nt
[2017-03-28] VITALS (23 sets, daily range): BP systolic 98–147; BP diastolic 35–55
[2017-03-28 03:53] LABS: HCO3 28.7 mmol/L (22.0-26.0); PCO2 38.6 mmHg (35.0-45.0); pH 7.489 (7.340-7.450)
[2017-03-28 04:21] LABS: HEMATOCRIT 27.5 % (37.0-47.0); HEMOGLOBIN 8.8 gm/dL (12.0-15.0); MCH 28.4 pg (26.0-34.0); MCHC 32.1 g/dL (28.0-37.0); MCV 88.6 fL (80.0-100.0); MPV 10.7 fl. (7.2-11.1); RBC 3.1 mil/uL (4.20-5.00); RDW-CV 19.4 % (10.5-14.5); WBC 17.9 thou/uL (4.0-11.0)
[2017-03-28 04:38] LABS: ALBUMIN 2.3 g/dL (3.4-5.0); CALCIUM 8.3 mg/dL (8.5-10.1); MAGNESIUM 2.1 mg/dL (1.8-2.4); POTASSIUM 4.1 mmol/L (3.5-5.1); TOTAL BILIRUBIN 0.8 mg/dL (<0.1-1.0); TOTAL PROTEIN 5.7 g/dL (6.4-8.2)
[2017-03-28 08:42] LABS: BE 6.2 mmol/L (-2 to +3); HCO3 30.6 mmol/L (22.0-26.0); PCO2 43.6 mmHg (35.0-45.0); PO2 86.3 mmHg (75.0-100.0); pH 7.464 (7.340-7.450)
[2017-03-28 10:18] LABS: BE 6.1 mmol/L (-2 to +3); HCO3 30.2 mmol/L (22.0-26.0); PO2 108.7 mmHg (75.0-100.0); pH 7.475 (7.340-7.450)
[2017-03-29] VITALS (32 sets, daily range): BP systolic 55–224; BP diastolic 28–89
[2017-03-29 05:07] LABS: BE 4.5 mmol/L (-2 to +3); HCO3 29.8 mmol/L (22.0-26.0); PCO2 48.6 mmHg (35.0-45.0); pH 7.405 (7.340-7.450)
[2017-03-29 05:37] LABS: ABSOLUTE LYMPHOCYTES 0.3 thou/uL (0.8-5.3); ABSOLUTE MONOCYTES 0.8 thou/uL (0.0-1.2); ABSOLUTE NEUTROPHILS 15.6 thou/uL (1.6-8.1); APTT 27.7 Seconds (25.0-31.3); BASOPHILS 0.2 %; HEMATOCRIT 23.2 % (37.0-47.0); HEMOGLOBIN 7.4 gm/dL (12.0-15.0); INR 1.4; LYMPHOCYTES 1.6 %; MCH 28.6 pg (26.0-34.0); MCHC 32.1 g/dL (28.0-37.0); MCV 89.1 fL (80.0-100.0); MPV 10.1 fl. (7.2-11.1); NUCLEATED RBCS 1 /100WBC; PLATELET COUNT* 109 thou/uL (150-400); POLYS 93.2 %; PROTIME 13.4 Seconds (9.20-11.50); RDW-CV 19.4 % (10.5-14.5); WBC 16.7 thou/uL (4.0-11.0)
[2017-03-29 05:55] LABS: ALBUMIN 2.1 g/dL (3.4-5.0); CALCIUM 8.4 mg/dL (8.5-10.1); POTASSIUM 4.6 mmol/L (3.5-5.1); TOTAL BILIRUBIN 0.8 mg/dL (<0.1-1.0)
[2017-03-29 06:01] LABS: CREATININE 4.3 mg/dL (0.6-1.3)
[2017-03-30] VITALS (11 sets, daily range): BP systolic 90–136; BP diastolic 34–49
[2017-03-30 05:46] LABS: BE 6.5 mmol/L (-2 to +3); HCO3 31.8 mmol/L (22.0-26.0); pH 7.417 (7.340-7.450)
[2017-03-30 05:49] LABS: PCO2 50.5 mmHg (35.0-45.0); PO2 55.9 mmHg (75.0-100.0)
[2017-03-30 06:13] LABS: HEMATOCRIT 23.5 % (37.0-47.0); HEMOGLOBIN 7.5 gm/dL (12.0-15.0); MCH 28.7 pg (26.0-34.0); MCHC 31.8 g/dL (28.0-37.0); MCV 90.2 fL (80.0-100.0); MPV 10.5 fl. (7.2-11.1); RBC 2.6 mil/uL (4.20-5.00); WBC 10.2 thou/uL (4.0-11.0)
[2017-03-30 06:54] LABS: INR 1.4
[2017-03-30 07:01] LABS: ALBUMIN 2.1 g/dL (3.4-5.0); CALCIUM 8.3 mg/dL (8.5-10.1); POTASSIUM 4.8 mmol/L (3.5-5.1); TOTAL PROTEIN 4.8 g/dL (6.4-8.2)
[2017-03-30 07:02] LABS: CREATININE 2.6 mg/dL (0.6-1.3)
[2017-03-30 07:11] LABS: % SATURATION 42 % (20-39); IRON 59 ug/dL (50-175)
[2017-03-31] VITALS (8 sets, daily range): BP systolic 105–142; BP diastolic 39–67
[2017-03-31 05:14] LABS: HEMATOCRIT 25.5 % (37.0-47.0); HEMOGLOBIN 8.2 gm/dL (12.0-15.0); MCH 28.9 pg (26.0-34.0); MCHC 32.1 g/dL (28.0-37.0); MCV 90.1 fL (80.0-100.0); MPV 10.4 fl. (7.2-11.1); NUCLEATED RBCS 0 /100WBC; PLATELET COUNT* 112 thou/uL (150-400); RBC 2.83 mil/uL (4.20-5.00); RDW-CV 19.9 % (10.5-14.5); WBC 17.5 thou/uL (4.0-11.0)
[2017-03-31 05:25] LABS: INR 1.3; PROTIME 12.5 Seconds (9.20-11.50)
[2017-03-31 05:44] LABS: ALBUMIN 2.4 g/dL (3.4-5.0); CALCIUM 8.6 mg/dL (8.5-10.1); CREATININE 3.5 mg/dL (0.6-1.3); POTASSIUM 4.9 mmol/L (3.5-5.1); TOTAL BILIRUBIN 1.2 mg/dL (<0.1-1.0); TOTAL PROTEIN 5.4 g/dL (6.4-8.2)
[2017-03-31 06:14] LABS: ABSOLUTE LYMPHOCYTES 0.2 thou/uL (0.8-5.3); ABSOLUTE MONOCYTES 1.4 thou/uL (0.0-1.2); ABSOLUTE NEUTROPHILS 15.9 thou/uL (1.6-8.1)
[2017-03-31 06:15] LABS: ANISOCYTOSIS 1+; HYPOCHROMASIA 1+; PLATELET ESTIMATE DECREASED; POIKILOCYTOSIS Occasional
[2017-03-31 15:09] LABS: eGFR IF AFRICAN AMERICAN 14 (>59)
[2017-03-31 16:17] LABS: HCO3 26.7 mmol/L (22.0-26.0); PO2 VENOUS 47.2 mmHg (35.0-45.0)
[2017-03-31 16:18] LABS: BE 1.2 mmol/L (-2 to +3)
[2017-04-01] VITALS: BP 154/45
[2017-04-01 02:05] LABS: PARATHYROID HORMONE 224 pg/mL (15-65)
[2017-04-01 04:00] VITALS: BP 138/39
[2017-04-01 05:35] LABS: ABSOLUTE LYMPHOCYTES 0.1 thou/uL (0.8-5.3); ABSOLUTE MONOCYTES 0.6 thou/uL (0.0-1.2); ABSOLUTE NEUTROPHILS 15.4 thou/uL (1.6-8.1); BASOPHILS 0.1 %; LYMPHOCYTES 0.4 %; MCH 28.5 pg (26.0-34.0); MCHC 31.5 g/dL (28.0-37.0); MCV 90.8 fL (80.0-100.0); MONOCYTES 3.9 %; MPV 10.2 fl. (7.2-11.1); NUCLEATED RBCS 0 /100WBC; PLATELET COUNT* 107 thou/uL (150-400); POLYS 95.6 %; RBC 2.43 mil/uL (4.20-5.00); RDW-CV 20.3 % (10.5-14.5); WBC 16.2 thou/uL (4.0-11.0)
[2017-04-01 05:39] LABS: HEMOGLOBIN 6.9 gm/dL (12.0-15.0)
[2017-04-01 06:07] LABS: CALCIUM 7.9 mg/dL (8.5-10.1); POTASSIUM 5.5 mmol/L (3.5-5.1)
[2017-04-01 06:08] LABS: CREATININE 4.6 mg/dL (0.6-1.3)
[2017-04-01 08:00] VITALS: BP 152/51
[2017-04-01 11:59] VITALS: BP 110/52; BP 113/51; BP 135/58
[2017-04-01 16:00] VITALS: BP 137/53
[2017-04-01 20:33] VITALS: BP 143/61
[2017-04-02] VITALS: BP 143/58
[2017-04-02 04:00] VITALS: BP 133/55
[2017-04-02 05:17] LABS: ABSOLUTE BASOPHILS 0.1 thou/uL (0.0-0.2); ABSOLUTE LYMPHOCYTES 0.2 thou/uL (0.8-5.3); ABSOLUTE MONOCYTES 0.7 thou/uL (0.0-1.2); ABSOLUTE NEUTROPHILS 13.2 thou/uL (1.6-8.1); BASOPHILS 0.4 %; HEMATOCRIT 25.6 % (37.0-47.0); HEMOGLOBIN 8.4 gm/dL (12.0-15.0); LYMPHOCYTES 1.2 %; MCHC 32.9 g/dL (28.0-37.0); MPV 9.9 fl. (7.2-11.1); NUCLEATED RBCS 0 /100WBC; PLATELET COUNT* 90 thou/uL (150-400); POLYS 93.4 %; RDW-CV 22.1 % (10.5-14.5); WBC 14.2 thou/uL (4.0-11.0)
[2017-04-02 05:23] LABS: MCV 85.2 fL (80.0-100.0)
[2017-04-02 05:30] LABS: CALCIUM 7.9 mg/dL (8.5-10.1); CREATININE 2.7 mg/dL (0.6-1.3); MAGNESIUM 1.9 mg/dL (1.8-2.4); PHOSPHORUS* 3.7 mg/dL (2.5-4.9); POTASSIUM 3.9 mmol/L (3.5-5.1)
[2017-04-02 13:00] VITALS: BP 134/54
[2017-04-02 16:30] VITALS: BP 150/53
[2017-04-02 20:00] VITALS: BP 179/45
[2017-04-03 03:56] VITALS: BP 131/52
[2017-04-03 05:32] LABS: ABSOLUTE BASOPHILS 0.1 thou/uL (0.0-0.2); ABSOLUTE LYMPHOCYTES 0.1 thou/uL (0.8-5.3); ABSOLUTE MONOCYTES 0.7 thou/uL (0.0-1.2); ABSOLUTE NEUTROPHILS 16.6 thou/uL (1.6-8.1); BASOPHILS 0.5 %; HEMATOCRIT 25.2 % (37.0-47.0); HEMOGLOBIN 8.3 gm/dL (12.0-15.0); LYMPHOCYTES 0.4 %; MCH 28.3 pg (26.0-34.0); MCV 85.6 fL (80.0-100.0); MPV 9.8 fl. (7.2-11.1); NUCLEATED RBCS 0 /100WBC; PLATELET COUNT* 82 thou/uL (150-400); POLYS 95.1 %; RBC 2.94 mil/uL (4.20-5.00); RDW-CV 22.2 % (10.5-14.5); WBC 17.5 thou/uL (4.0-11.0)
[2017-04-03 05:40] LABS: CALCIUM 8.1 mg/dL (8.5-10.1); MAGNESIUM 2.2 mg/dL (1.8-2.4); POTASSIUM 4.3 mmol/L (3.5-5.1)
[2017-04-03 05:42] LABS: CREATININE 3.7 mg/dL (0.6-1.3)
[2017-04-03 08:00] VITALS: BP 150/53
[2017-04-03] MEDS ORDERED: ADULT LOW DOSE81 MG PO (13:11)
[2017-04-03] MEDS ORDERED: AMBIEN 5 MG TABL5 M1 PO ×2 (13:12→15:33)
[2017-04-03] MEDS ORDERED: BENADRYL25 MG PO (13:23)
[2017-04-03] MEDS ORDERED: MELATONIN5 M1 PO (13:28)
[2017-04-03] MEDS ORDERED: TUMS PO (13:34)
[2017-04-03] MEDS ORDERED: PAIN & FEVER325 MG PO (13:42)
[2017-04-03] MEDS ORDERED: ONDANSETRON HCL4 M2 PO ×2 (13:43→13:44)
[2017-04-03] MEDS ORDERED: HYDROCODONE-AP1 EAC6 PO (13:59)
[2017-04-03] MEDS ORDERED: DULCOLAX5 MG PO (14:03)
[2017-04-03] MEDS ORDERED: MILK OF MA2400 MG/10 PO (14:05)
[2017-04-03] MEDS ORDERED: PROMETHAZINE12.5 M1 PO (14:07)
[2017-04-03] MEDS ORDERED: PROTONIX40 M2 PO (14:09)
[2017-04-03] MEDS ORDERED: PREDNISONE 10 M10 MG PO (14:13)
[2017-04-03 14:21] VITALS: BP 151/49
[2017-04-03] MEDS ORDERED: FEVERALL650 MG RECTAL (15:35)
--- NOTE | 2017-04-05 10:39 | CON ---
[address] [address] CONSULTATION Name: SARA BRANDT Room: [address]#: [id number] Admission: 03/20/17 Attend Phys: Felisha Gonzalez MD Discharge: 04/03/17 Date of : 42 Report #: [id number] THIS REPORT FOR: //name// CC: Shilpa Gonzalez DATE OF SERVICE: 03/27/2017 HISTORY OF PRESENT ILLNESS: This is a 76-year-old female patient who was discussed with the nurses looking after this patient. The history is from the record as well as family. This patient's family provides a history that this patient had some chronic problems, but it looks like the problems had really become worse since . Even before that she was not able to drive, able to do the check book and needed help of her in doing day-to-day activities like going to the bathroom and shower. Since 2016, she is basically bedridden as I understand. As I understand from the nurses, she had third-degree heart blocks and has to be resuscitated. They just took her off propofol and she has been somewhat more responsive but basically opens her eyes and does not do anything. REVIEW OF SYSTEMS: Very extensive in this patient. She has a history of lung cancer, recurrent pneumonia, peripheral neuropathy, end-stage renal disease and is on dialysis, paroxysmal atrial fibrillation and cataract surgeries in the past. In general, she has a very extensively positive review of systems, 14-point review. PAST MEDICAL HISTORY: Positive for lung cancer. FAMILY HISTORY: Negative for early age stroke. SOCIAL HISTORY: She does not drink any alcohol. PHYSICAL EXAMINATION: NEUROLOGICAL: The patient's examination was very limited. The only responds I could get is that she tends to open her eyes when she is stimulated. She does not follow any commands. Her reflexes are diminished. GENERAL: She is moderately built individual who is vision and hearing cannot be assessed. EXTREMITIES: She does not appear to have edema. VITAL SIGNS: She is on vent. Her temperature is 97.4, pulse is 60, respiration is 16 and blood pressure 106/45. IMPRESSION: I have been asked to prognosticate this patient from what looks like what the nurse did tell me was third-degree block, resuscitation. However, [place] [address] CONSULTATION Name: SARA BRANDT Room: [address]#: [id number] Admission: 03/20/17 Attend Phys: Felisha Gonzalez MD Discharge: 04/03/17 Date of : 42 Report #: [id number] I need to talk to Dr. Gonzalez to confirm that. I had a long talk with the family. I told them that they need to decide how aggressive to be on her because of so many prior problem and what looks like very poor quality of the life. Baseline poor quality of the life also make it difficult to assess this problem. RECOMMENDATIONS: I asked them to think about it. I will get an EEG done, but I will talk to you before doing any further testing to clarify the situation in this patient because looks like her quality of the life is very poor in the baseline. Thank you very much for this referral. <ELECTRONICALLY SIGNED> By: José Manuel Toledo MD 04/05/17 1039 1340 2024Pdebbie Toledo MD /nt
--- NOTE | 2017-04-05 10:39 | EEG ---
[address] [address] EEG STUDY REPORT Name: SARA BRANDT Room: [address] IN .R.#: [id number] Admission: 03/20/17 Attend Phys: Felisha Gonzalez MD Discharge: 04/03/17 Date of : 42 Report #: [id number] THIS REPORT FOR: //name// CC: Shilpa Gonzalez DATE OF SERVICE: 03/27/2017 This patient is being evaluated for altered mental status. EEG was done by placing the electrodes by standard 10/20 system of electrode placement. Both referential and sequential montages were used for recording. Background activity in this patient's EEG is about 4-5 Hz. Photic stimulation is unremarkable. Throughout the record, no active epileptiform activity was noticed. Some suggestion of triphasic waves were noticed, but that is difficult to separate from eye movement artifact. IMPRESSION: This is an abnormal EEG, which will be consistent with a diagnosis of encephalopathy. However, the finding is nonspecific and therefore, clinical correlation is recommended. Thank you very much for this referral. <ELECTRONICALLY SIGNED> By: José Manuel Toledo MD 04/05/17 1039 0847 [id number] Manuel Toledo MD /nt
--- NOTE | 2017-04-10 07:49 | CARD ---
[address] [address] CARDIAC CATH REPORT Name: KARLYSARA Cori Room: [address] IN [facility]#: [id number] Admission: 03/20/17 Attend Phys: Felisha Gonzalez MD Discharge: 04/03/17 Date of : 42 Report #: [id number] THIS REPORT FOR: //name// APPROVED REPORT Patient Status: In-Patient Room #: 005 Event Personnel: Jose C Cardoza Rn Case Manager, Damaris Suazo RN Raw Material Handler, Nasim Garner (R) Monitor, Stella Perez RTR Scrub Exam: temporary pacemaker placement Indications: severe symptomatic bradycardia The patient is a 76 year-old female with a history of . Procedure The patient underwent informed consent. We discussed the details of the procedure including the risks, which include, but not limited to bleeding, infection, vascular damage, cardiac perforation, and pneumothorax. After informed consent was obtained the patient was brought to the cardiac catheterization lab. The area of the right groin was prepped and draped in sterile fashion. Local anesthesia was achieved with 1% lidocaine. Next a 6 Swiss venous sheath was placed using the percutaneous technique. A temporary pacing wire was advanced to a secure position within the right ventricular apex. Adequate capture was assured. A sterile sheath was applied to the external portion of the temporary catheter which was attached to the 6 Swiss venous sheath. The PVCs was secured using interrupted stitches of 2-0 silk suture. The pacing lead was then covered with a sterile dressing and secured. Patient was returned to the intensive care unit in stable condition. Complications The patient tolerated the procedure well and there were no complications associated with the procedure. Conclusion 1. Severe symptomatic bradycardia. 2. Successful placement of a temporary pacemaker. <ELECTRONICALLY SIGNED> By: Jose C Cardoza MD, FACC 04/10/17 0749 0749 0749Micannette Cardoza MD, FACC /INF
== END 2017-04-03 15:45 | DRG 208 ==
LOC: M.ERS 14:07 → M.2W 16:39 → M.TBA-ER 16:39 → M.2W 17:36 → M.ICU 03-25 07:32 → M.2W 03-31 18:22
PROVIDERS: Emergency Medicine Emergency Medical Services; Internal Medicine; Internal Medicine Infectious Disease; Internal Medicine Nephrology; ADMIT Internal Medicine
PROC: 5A1D70Z Performance of Urinary Filtration, Intermittent, Less than 6 Hours Per Day (ICD-10-PCS; principal; 2017-03-21)
PROC: 5A1D70Z Performance of Urinary Filtration, Intermittent, Less than 6 Hours Per Day (ICD-10-PCS; 2017-03-22)
PROC: 5A1945Z Respiratory Ventilation, 24-96 Consecutive Hours (ICD-10-PCS; 2017-03-25)
PROC: 5A1D70Z Performance of Urinary Filtration, Intermittent, Less than 6 Hours Per Day (ICD-10-PCS; 2017-03-25)
PROC: 0BH17EZ Insertion of Endotracheal Airway into Trachea, Via Natural or Artificial Opening (ICD-10-PCS; 2017-03-25)
PROC: 5A1223Z Performance of Cardiac Pacing, Continuous (ICD-10-PCS; 2017-03-27)
PROC: 4A00X4Z Measurement of Central Nervous Electrical Activity, External Approach (ICD-10-PCS; 2017-03-27)
PROC: 5A1D70Z Performance of Urinary Filtration, Intermittent, Less than 6 Hours Per Day (ICD-10-PCS; 2017-03-29)
PROC: 30233N1 Transfusion of Nonautologous Red Blood Cells into Peripheral Vein, Percutaneous Approach (ICD-10-PCS; 2017-04-01)
DX: J15.6 Pneumonia due to other Gram-negative bacteria (principal); J96.01 Acute respiratory failure with hypoxia; N18.6 End stage renal disease; G92 Toxic encephalopathy; K72.00 Acute and subacute hepatic failure without coma; J96.02 Acute respiratory failure with hypercapnia; I12.0 Hypertensive chronic kidney disease with stage 5 chronic kidney disease or end stage renal disease; E44.0 Moderate protein-calorie malnutrition; J44.0 Chronic obstructive pulmonary disease with (acute) lower respiratory infection; N17.9 Acute kidney failure, unspecified; R65.10 Systemic inflammatory response syndrome (SIRS) of non-infectious origin without acute organ dysfunction; Z99.2 Dependence on renal dialysis; I95.9 Hypotension, unspecified; I48.0 Paroxysmal atrial fibrillation; E11.22 Type 2 diabetes mellitus with diabetic chronic kidney disease; E11.51 Type 2 diabetes mellitus with diabetic peripheral angiopathy without gangrene; E11.649 Type 2 diabetes mellitus with hypoglycemia without coma; E87.5 Hyperkalemia; F39 Unspecified mood [affective] disorder; Z66 Do not resuscitate; L89.321 Pressure ulcer of left buttock, stage 1; L89.311 Pressure ulcer of right buttock, stage 1; H54.40 Blindness, one eye, unspecified eye; R59.9 Enlarged lymph nodes, unspecified; G72.9 Myopathy, unspecified; D63.8 Anemia in other chronic diseases classified elsewhere; E78.5 Hyperlipidemia, unspecified; I25.10 Atherosclerotic heart disease of native coronary artery without angina pectoris; E11.65 Type 2 diabetes mellitus with hyperglycemia; K58.9 Irritable bowel syndrome, unspecified; E11.42 Type 2 diabetes mellitus with diabetic polyneuropathy; Z95.5 Presence of coronary angioplasty implant and graft; Z85.118 Personal history of other malignant neoplasm of bronchus and lung; Z92.21 Personal history of antineoplastic chemotherapy; Z79.4 Long term (current) use of insulin; Z79.899 Other long term (current) drug therapy; Z88.8 Allergy status to other drugs, medicaments and biological substances; Z84.1 Family history of disorders of kidney and ureter; Z82.49 Family history of ischemic heart disease and other diseases of the circulatory system

== ENCOUNTER 2017-04-12 14:31 | Inpatient (IN) | payer MEDICARE ==
[~2017-04-12] VITALS: Ht 154.9 cm; Wt 61.7 kg
[~2017-04-12 14:31] MED LIST changes: +ADULT LOW DOSE81 MG PO; +AMBIEN 5 MG TABL5 M1 PO; +ATROVENT HFA14 GM INH; +BENADRYL25 MG PO; +DULCOLAX5 MG PO; +FEVERALL650 MG RECTAL; +HYDROCODONE-AP1 EAC6 PO; +LEVAQUIN 500 M500 M2 PO; +MELATONIN5 M1 PO; +MILK OF MA2400 MG/10 PO; +ONDANSETRON HCL4 M2 PO; +PAIN & FEVER325 MG PO; +PREDNISONE 10 M10 MG PO; +PROMETHAZINE12.5 M1 PO; +PROTONIX40 M2 PO; +TUMS PO
[2017-04-12 16:44] LABS: MCH 28.6 pg (26.0-34.0); MCHC 32.2 g/dL (28.0-37.0); MCV 88.9 fL (80.0-100.0); MPV 9.5 fl. (7.2-11.1); NUCLEATED RBCS 0 /100WBC; PLATELET COUNT* 59 thou/uL (150-400); RBC 2.13 mil/uL (4.20-5.00); RDW-CV 22.5 % (10.5-14.5); WBC 6.9 thou/uL (4.0-11.0)
[2017-04-12 16:47] LABS: HEMOGLOBIN 6.1 gm/dL (12.0-15.0)
[2017-04-12 16:50] LABS: CALCIUM 7.9 mg/dL (8.5-10.1); POTASSIUM 3.2 mmol/L (3.5-5.1)
[2017-04-12 16:54] LABS: TOTAL BILIRUBIN 0.5 mg/dL (<0.1-1.0); TOTAL PROTEIN 4.8 g/dL (6.4-8.2)
[2017-04-12 17:00] VITALS: BP 132/46
[2017-04-12 17:28] LABS: ABSOLUTE LYMPHOCYTES 0.3 thou/uL (0.8-5.3); ABSOLUTE MONOCYTES 0.3 thou/uL (0.0-1.2); ABSOLUTE NEUTROPHILS 6.3 thou/uL (1.6-8.1); PLATELET ESTIMATE DECREASED
[2017-04-12 17:29] LABS: ANISOCYTOSIS 1+
[2017-04-12 18:28] VITALS: BP 158/56; BP 159/58; BP 163/58; BP 163/64; BP 170/59
[2017-04-12 19:55] VITALS: BP 163/64
[2017-04-12 22:38] LABS: HEMATOCRIT 22.8 % (37.0-47.0); HEMOGLOBIN 7.6 gm/dL (12.0-15.0)
[2017-04-13 05:25] LABS: ABSOLUTE LYMPHOCYTES 0.2 thou/uL (0.8-5.3); ABSOLUTE MONOCYTES 0.3 thou/uL (0.0-1.2); ABSOLUTE NEUTROPHILS 7.2 thou/uL (1.6-8.1); EOSINOPHILS 0.5 %; HEMATOCRIT 22.2 % (37.0-47.0); HEMOGLOBIN 7.3 gm/dL (12.0-15.0); LYMPHOCYTES 3.1 %; MCHC 32.9 g/dL (28.0-37.0); MCV 88.3 fL (80.0-100.0); MONOCYTES 3.6 %; MPV 10.4 fl. (7.2-11.1); NUCLEATED RBCS 0 /100WBC; PLATELET COUNT* 53 thou/uL (150-400); POLYS 92.8 %; RBC 2.52 mil/uL (4.20-5.00); RDW-CV 19.8 % (10.5-14.5); WBC 7.7 thou/uL (4.0-11.0)
[2017-04-13 05:31] LABS: ALBUMIN 1.8 g/dL (3.4-5.0); CALCIUM 7.8 mg/dL (8.5-10.1); CREATININE 2.5 mg/dL (0.6-1.3); POTASSIUM 3.4 mmol/L (3.5-5.1); TOTAL BILIRUBIN 0.6 mg/dL (<0.1-1.0); TOTAL PROTEIN 4.5 g/dL (6.4-8.2)
[2017-04-13 05:37] LABS: PREALBUMIN 19.2 mg/dL (18.0-35.7)
[2017-04-13 08:00] VITALS: BP 163/64
[2017-04-13 16:00] VITALS: BP 157/50
[2017-04-13 19:20] VITALS: BP 158/62
[2017-04-14 08:13] VITALS: BP 160/61
--- NOTE | 2017-04-14 11:52 | CON ---
[address] [address] CONSULTATION Name: ILANWILIAMDinoSARA Cori Room: [address] IN .R.#: [id number] Admission: 04/12/17 Attend Phys: Jean Dorman MD Discharge: Date of : 42 Report #: [id number] THIS REPORT FOR: //name// CC: Shilpa Andradejeet [facility] CONSULTING PHYSICIAN: Jean Dorman MD. REASON FOR CONSULTATION: End-stage kidney disease. HISTORY OF PRESENT ILLNESS: A 76-year-old female admitted with severe symptomatic anemia. She underwent dialysis yesterday. She has no complaints today. She had hemoglobin of 6.1 on admission, up to 7.3 now and she was transfused 1 unit of packed red blood cells. REVIEW OF SYSTEMS: Constitutional, psych, heme, eyes, ENT, respiratory, cardiac, GI, , endocrine, all negative except as documented above. PAST MEDICAL HISTORY: End-stage kidney disease, on hemodialysis since 2012; hypertension; diabetes; history of irritable bowel syndrome; history of lung cancer; dyslipidemia; coronary artery disease. MEDICATIONS: Reviewed. FAMILY HISTORY: Mother had kidney disease. SOCIAL HISTORY: No tobacco. PHYSICAL EXAMINATION: VITAL SIGNS: Blood pressure 163/64, pulse 67, temperature 36.6. GENERAL: No acute distress. EYES: Extraocular movements intact. EARS: Externally normal. CARDIOVASCULAR: Regular rhythm and rate. LUNGS: No crackles. ABDOMEN: Soft. LYMPHATICS: Positive swelling. PSYCHIATRIC: Awake, alert. LABORATORY DATA: White blood cell count 7.7, hemoglobin 7.3, platelets 53. Sodium 136, potassium 3.4, chloride 102, bicarbonate 34, BUN 25, creatinine 2.5, glucose 146, calcium 7.8, glucose 146. ASSESSMENT AND PLAN: 1. End-stage kidney disease, on hemodialysis Saturday, [place] [address] CONSULTATION Name: SARA BRANDT Room: [address] IN [facility].#: [id number] Admission: 04/12/17 Attend Phys: Jean Dorman MD Discharge: Date of : 42 Report #: [id number] will continue maintenance dialysis. No urgent indications for dialysis today. 2. Anemia, transfused. We will defer further management to primary team. 3. Thrombocytopenia per primary team. 4. We will follow for dialysis needs. Thank you for requesting my opinion in the care and management of this patient. <ELECTRONICALLY SIGNED> By: Leonor Devries MD 04/14/17 1152 1230 1930Leonor Devries MD /nt
[2017-04-14 16:16] VITALS: BP 177/71
[2017-04-15 05:08] LABS: ALBUMIN 1.8 g/dL (3.4-5.0); PHOSPHORUS* 2.2 mg/dL (2.5-4.9); POTASSIUM 4.9 mmol/L (3.5-5.1)
[2017-04-15 05:12] LABS: HEMATOCRIT 22.6 % (37.0-47.0); HEMOGLOBIN 7.8 gm/dL (12.0-15.0); MCHC 34.4 g/dL (28.0-37.0); MCV 87.1 fL (80.0-100.0); MPV 9.8 fl. (7.2-11.1); NUCLEATED RBCS 0 /100WBC; PLATELET COUNT* 51 thou/uL (150-400); RBC 2.59 mil/uL (4.20-5.00); RDW-CV 19.3 % (10.5-14.5); WBC 5.9 thou/uL (4.0-11.0)
[2017-04-15 05:17] LABS: CREATININE 4.3 mg/dL (0.6-1.3)
[2017-04-15 05:23] LABS: ALBUMIN 1.8 g/dL (3.4-5.0); CALCIUM 7.8 mg/dL (8.5-10.1); CREATININE 4.4 mg/dL (0.6-1.3); POTASSIUM 4.9 mmol/L (3.5-5.1); TOTAL BILIRUBIN 0.6 mg/dL (<0.1-1.0); TOTAL PROTEIN 4.5 g/dL (6.4-8.2)
[2017-04-15 06:01] LABS: ABSOLUTE LYMPHOCYTES 0.5 thou/uL (0.8-5.3); ABSOLUTE MONOCYTES 0.1 thou/uL (0.0-1.2); ABSOLUTE NEUTROPHILS 5.3 thou/uL (1.6-8.1); ANISOCYTOSIS 1+; HYPOCHROMASIA 1+; PLATELET ESTIMATE DECREASED; POIKILOCYTOSIS 1+
[2017-04-15 08:33] VITALS: BP 167/89
[2017-04-15 14:06] VITALS: BP 167/89
[2017-04-15 14:32] VITALS: BP 167/89
== END 2017-04-15 15:57 | disposition hospice, home (50) | DRG 180 ==
LOC: M.3W 14:31
PROVIDERS: Internal Medicine Nephrology; ADMIT Internal Medicine
PROC: 30233N1 Transfusion of Nonautologous Red Blood Cells into Peripheral Vein, Percutaneous Approach (ICD-10-PCS; principal; 2017-04-12)
DX: C34.90 Malignant neoplasm of unspecified part of unspecified bronchus or lung (principal); E43 Unspecified severe protein-calorie malnutrition; N18.6 End stage renal disease; I50.33 Acute on chronic diastolic (congestive) heart failure; I12.0 Hypertensive chronic kidney disease with stage 5 chronic kidney disease or end stage renal disease; D64.9 Anemia, unspecified; Z99.2 Dependence on renal dialysis; D69.6 Thrombocytopenia, unspecified; E11.22 Type 2 diabetes mellitus with diabetic chronic kidney disease; E11.40 Type 2 diabetes mellitus with diabetic neuropathy, unspecified; K58.9 Irritable bowel syndrome, unspecified; R62.7 Adult failure to thrive; Z84.1 Family history of disorders of kidney and ureter; Z88.8 Allergy status to other drugs, medicaments and biological substances; Z79.82 Long term (current) use of aspirin; Z79.899 Other long term (current) drug therapy; Z98.49 Cataract extraction status, unspecified eye; Z86.74 Personal history of sudden cardiac arrest; Z79.4 Long term (current) use of insulin; Z68.25 Body mass index [BMI] 25.0-25.9, adult